=== PATIENT | female | born 1955 | race Caucasian/White ===

== ENCOUNTER → 2023-10-31 06:32 | Day surgery (SDC) | payer MEDICARE, OTHER, SELFPAY | LOC: GI 06:32 | PROVIDERS: ATTENDING PHYSICIAN Internal Medicine Gastroenterology | DX: Z12.11 Encounter for screening for malignant neoplasm of colon (principal); K63.5 Polyp of colon; K57.30 Diverticulosis of large intestine without perforation or abscess without bleeding; K64.8 Other hemorrhoids; Z86.010 Personal history of colon polyps | CPT/HCPCS: 45380; 88305 ==

== ENCOUNTER → 2023-12-29 07:09 | Outpatient (REF) | payer MEDICARE, OTHER, SELFPAY | LOC: RCS 07:09 | PROVIDERS: ATTENDING PHYSICIAN Family Medicine | DX: R06.09 Other forms of dyspnea (principal); R01.1 Cardiac murmur, unspecified; M79.89 Other specified soft tissue disorders | CPT/HCPCS: 93306 ==

== ENCOUNTER 2024-01-15 06:09 | Day surgery (SDC) | payer MEDICARE, OTHER, SELFPAY ==
[2024-01-15] VITALS (17 sets, daily range): BP systolic 78–164; BP diastolic 33–61; BMI 37.4
[2024-01-15] MEDS: LOW STRENGTH ASPIRIN 324 MG PO (07:30)
--- NOTE | 2024-01-15 08:42 | ITS.CL.CATH ---
[facility] - Catheterization
Cardiac Catheterization
Procedure Report:
LEFT HEART CATHETERIZATION
Date of Procedure: January 15, 2024
Referring: Dr. Cristobal Pacheco
PROCEDURES:
1. Coronary angiography
INDICATION: This is a 68-year-old female with a longstanding history of 'cardiac murmur'. She was seen for her regular physical exam in September and was told that her murmur may be a little bit louder. In November she began feeling poorly with a change
in exercise tolerance especially when walking up slight hills and development of chest pain. At this point an echocardiogram was ordered and the patient was referred to cardiology for further evaluation. She was noted to have severe aortic
stenosis and moderate aortic insufficiency. She is now referred for coronary angiography
ACCESS: Right radial artery, 6 Pashto sheath
HEMODYNAMICS : (mmHg)
AO (s/d) : 166/65
CORONARY FINDINGS
DOMINANCE: Left
LEFT MAIN: Normal
LEFT ANTERIOR DESCENDING: The LAD arises normally from the left main and runs in the anterior interventricular groove. The LAD tapers to a small caliber vessel as it approaches the left ventricular apex. No focal stenosis is noted.
CIRCUMFLEX: The circumflex is a large-caliber dominant vessel supplying a very small OM1 before continuing the AV groove. The circumflex and supplies a large posterolateral system that bifurcates proximally into 2 sizable daughter branches. The
PDA is widely patent.
RIGHT CORONARY ARTERY: Small nondominant
VENTRICULOGRAPHY: Not done
RADIATION SUMMARY: Fluoro Time (min): 2.6, Dose (mGy): 167, DAP (Gy.cm2) : 12.4
Closure Device: TR band
CONCLUSIONS
1. Nonobstructive coronary disease
2. Symptomatic aortic severe stenosis by echocardiogram
RECOMMENDATIONS
1. Will discuss at upcoming TAVR meeting to determine surgical versus transcatheter treatment options. Will begin by obtaining TAVR CT scan to assess annular dimensions which may impact treatment option
Copy to: Dr. Cristobal Pacheco
[2024-01-15] MEDS: NSS 1000 IV (11:37)
== END 2024-01-15 11:50 | disposition home or self-care (01) ==
LOC: CATH 06:09
PROVIDERS: ATTENDING PHYSICIAN Internal Medicine Interventional Cardiology; FAMILY PHYSICIAN Family Medicine; OTHER PHYSICIAN Internal Medicine Cardiovascular Disease
DX: I35.2 Nonrheumatic aortic (valve) stenosis with insufficiency (principal); I25.10 Atherosclerotic heart disease of native coronary artery without angina pectoris; I10 Essential (primary) hypertension; Z79.890 Hormone replacement therapy; Z79.899 Other long term (current) drug therapy
CPT/HCPCS: 93454; C1894; Q9967

== ENCOUNTER → 2024-01-29 09:16 | Outpatient (REF) | payer MEDICARE, OTHER, SELFPAY | LOC: RAD 09:16 | PROVIDERS: ATTENDING PHYSICIAN Nurse Practitioner Acute Care; FAMILY PHYSICIAN Family Medicine | DX: R35.0 Frequency of micturition (principal) | CPT/HCPCS: 74174; 75572; Q9967 ==

== ENCOUNTER 2024-03-28 05:01 | Inpatient (IN) | payer MEDICARE, OTHER, SELFPAY ==
--- NOTE | 2024-03-20 10:41 | CM ---
Met with Miss Catherine in [facility]. She states prior to admission she resides alone in a two story townhouse with one step to enter. She states she has one step to enter. She states she has a full flight of steps to get to bedroom/full bathroom. She
states prior to admission she was independent with ambulation and adls. She does not have any DME in the home. She states she has a prescription plan . She states she is planning on staying with her sister, Romy in [place], [place] for a week before
returning to her own home. Her sisiter resides in a one story home with one step to enter. The discharge plan is to go to her sister's home in [place] with a home visit by the Cardiothoracic Transitional Care Nurse when medically stable.
We reviewed pre-op and post-op routines. We reviewed the shower instructions. She has the soap, written instructions and the Cardiothoracic Surgery Educational Booklet. We also reviewed restrictions including sternal precautions and driving
restrictions. We discussed a home visit by the Transitional Care Nurse. She is agreeable to a home visit. The plan is for AVR on Wednesday, March 27, 2024.
[2024-03-20 11:32] VITALS: BMI 37.2
[2024-03-20 11:44] LABS: % Basophils 0.8 % (0-2); % Immature Granulocytes 0.4 % (0-0.5); % Lymphocytes 22.3 % (20.5-51.1); % Monocytes 6.3 % (1.7-9.3); % Neutrophils 67.2 % (42.2-75.2); Absolute Basophils 0.1 10^3/uL (0-0.2); Absolute Eosinophils 0.2 10^3/uL (0-0.7); Absolute Lymphocytes 1.6 10^3/uL (1.2-3.4); Absolute Monocytes 0.5 10^3/uL (0.1-0.6); Absolute Neutrophils 4.9 10^3/uL (1.4-6.5); Hematocrit 39.8 % (37.0-47.0); Hemoglobin 13.6 g/dL (12.0-16.0); Mean Corp Hgb Conc. 34.2 g/dL (33.0-37.0); Mean Corpuscular Hgb 28.7 pg (27.0-31.0); Mean Platelet Volume 10.6 fL (7.4-10.4); Nucleated Red Blood Cells % 0 %; Platelet Count 187 10^3/uL (130-400); Red Blood Cell Count 4.74 10^6/uL (4.20-5.40); Red Cell Dist. Width 13.2 % (11.5-14.5); White Blood Cell Count 7.3 10^3/uL (4.8-10.8)
[2024-03-20 11:53] LABS: INR 0.93; PT 12.4 Sec (11.4-14.6)
[2024-03-20 11:54] LABS: APTT 30.1 Sec (23.4-35.0)
[2024-03-20 12:00] LABS: Urine Albumin Negative (Neg - Trace); Urine Bilirubin Negative (Negative); Urine Character Clear (Clear); Urine Color Straw; Urine Glucose Negative (Negative); Urine Ketone Negative (Negative); Urine Leukocyte Negative (Negative); Urine Nitrite Negative (Negative); Urine Occult Blood Negative (Negative); Urine Specific Gravity 1.005 (<1.030); Urine Urobilinogen Negative (Neg - 1+)
[2024-03-20 12:09] LABS: ALT (SGPT) 23 U/L (0-35); AST (SGOT) 25 U/L (14-36); Albumin 4.1 g/dl (3.5-5.0); Alkaline Phosphatase 93 U/L (38-126); Blood Urea Nitrogen 16 mg/dl (7-17); Calcium 9.2 mg/dl (8.4-10.2); Carbon Dioxide 29 mmol/L (22-30); Chloride 102 mmol/L (98-107); Direct Bilirubin 0.1 mg/dl (0.0-0.4); Estimated Creatinine Clearance 77 ml/min; Glucose 86 mg/dl (70-99); Potassium 4.6 mmol/L (3.5-5.1); Sodium 140 mmol/L (135-145); Total Bilirubin 0.6 mg/dl (0.2-1.3); Total Protein 6.3 g/dl (6.3-8.2); eGFR > 60.00
[2024-03-20 12:17] LABS: Glycohemoglobin (HgbA1c) 5.2 % (4.0-5.6)
[2024-03-28] VITALS (16 sets, daily range): BP systolic 83–144; BP diastolic 56–96; BMI 35.8
[2024-03-28] MEDS: MAGNESIUM OXIDE 500 MG PO (05:48)
[2024-03-28] MEDS: LOPRESSOR 12.5 MG PO (05:48)
[2024-03-28] MEDS: PROTONIX 40 MG PO (05:48)
[2024-03-28] MEDS: BACTROBAN 2% OINTMENT 1 APPLIC NASAL ×2 (05:49→20:12)
--- NOTE | 2024-03-28 06:44 | PTCARENOTE ---
pt admitted to 3. pt confirmed 2 showers at home and NPO since midnight. pt clipped, prepped, washed with CHG. full admission completed. meds given, CTPA only wants 12.5 lopressor for hx of asthma. awaiting CVOR
[2024-03-28 07:57] LABS: ACT+ - POC 107 Seconds (82-134)
[2024-03-28 08:01] LABS: Urine Albumin Negative (Neg - Trace); Urine Bilirubin Negative (Negative); Urine Character Clear (Clear); Urine Color Yellow; Urine Glucose Negative (Negative); Urine Ketone Negative (Negative); Urine Leukocyte Negative (Negative); Urine Nitrite Negative (Negative); Urine Occult Blood Trace (Negative); Urine Urobilinogen Negative (Neg - 1+)
[2024-03-28 08:25] LABS: Urine Squamous Cell 0-2 /LPF (Few)
[2024-03-28 08:26] LABS: Urine Bacteria Few (Negative); Urine White Cell 0-2 /HPF (0-5)
--- NOTE | 2024-03-28 08:48 | CM ---
Reviewed chart. Ms. Catherine is the operating room today. Prior to admission she resides alone in a two story home with one step to enter. She has a full flight of stairs to get to bedroom/full bathroom. Prior to admission she was independent
with ambulation and adls. She does not have any DME in the home. She has a prescription plan . She is planning [place] [place] [facility] before returning to her own home. Her sister resides in a one story
home with one step to enter. Medial work-up in progress. The discharge plan is to go to her sister's home with a home visit by the Transitional Care Nurse when medically stable.
[2024-03-28 09:11] LABS: ACT+ - POC 787 Seconds (82-134)
[2024-03-28 09:45] LABS: B.E. - POC -2.8 mmol/L; Glucose - POC 100 mg/dl (70-99); HCO3 - POC 21 mmol/L (21-29); Hematocrit - POC 30 % PCV (37-47); Hemodilution- POC No; Hemoglobin Calculated - POC 10.2; Ionized Calcium - POC 1.03 mmol/L (1.12-1.27); O2 Saturation %Calculated-POC 99.9 % (92-96); PCO2 - POC 33 mmHg (35-45); PO2 - POC 250 mmHg (80-100); POC Comment PRE; Potassium - POC 3.4 mmol/L (3.6-5.0); Sodium - POC 143 mmol/L (135-145); pH - POC 7.42 (7.35-7.45)
[2024-03-28 09:59] LABS: ACT+ - POC 622 Seconds (82-134)
[2024-03-28 10:27] LABS: B.E. - POC 3.5 mmol/L; Glucose - POC 99 mg/dl (70-99); HCO3 - POC 27 mmol/L (21-29); Hematocrit - POC 29 % PCV (37-47); Hemodilution- POC Yes; Hemoglobin Calculated - POC 9.7; Ionized Calcium - POC 0.93 mmol/L (1.12-1.27); PCO2 - POC 35 mmHg (35-45); PO2 - POC 408 mmHg (80-100); POC Comment CPB; Potassium - POC 5.2 mmol/L (3.6-5.0); Sodium - POC 140 mmol/L (135-145)
[2024-03-28 10:38] LABS: ACT+ - POC 546 Seconds (82-134)
[2024-03-28 11:10] LABS: B.E. - POC 2.8 mmol/L; Glucose - POC 146 mg/dl (70-99); HCO3 - POC 27 mmol/L (21-29); Hematocrit - POC 28 % PCV (37-47); Hemodilution- POC Yes; Hemoglobin Calculated - POC 9.4; Ionized Calcium - POC 0.96 mmol/L (1.12-1.27); O2 Saturation %Calculated-POC 99.9 % (92-96); PCO2 - POC 40 mmHg (35-45); PO2 - POC 305 mmHg (80-100); POC Comment CPB; Potassium - POC 5.2 mmol/L (3.6-5.0); Sodium - POC 141 mmol/L (135-145); pH - POC 7.44 (7.35-7.45)
[2024-03-28 11:18] LABS: ACT+ - POC 549 Seconds (82-134)
[2024-03-28 11:36] LABS: B.E. - POC 1.7 mmol/L; Glucose - POC 164 mg/dl (70-99); HCO3 - POC 27 mmol/L (21-29); Hematocrit - POC 28 % PCV (37-47); Hemodilution- POC Yes; Hemoglobin Calculated - POC 9.4; Ionized Calcium - POC 0.97 mmol/L (1.12-1.27); O2 Saturation %Calculated-POC 99.9 % (92-96); PCO2 - POC 44 mmHg (35-45); PO2 - POC 260 mmHg (80-100); POC Comment REWARN; Potassium - POC 4.6 mmol/L (3.6-5.0); Sodium - POC 141 mmol/L (135-145); pH - POC 7.39 (7.35-7.45)
[2024-03-28 11:40] LABS: ACT+ - POC 101 Seconds (82-134)
[2024-03-28 11:41] LABS: Glucose - POC 148 mg/dl (70-99); HCO3 - POC 23 mmol/L (21-29); Hematocrit - POC 26 % PCV (37-47); Hemodilution- POC Yes; Hemoglobin Calculated - POC 8.8; Ionized Calcium - POC 0.99 mmol/L (1.12-1.27); PCO2 - POC 31 mmHg (35-45); PO2 - POC 514 mmHg (80-100); POC Comment POST; Potassium - POC 3.7 mmol/L (3.6-5.0); Sodium - POC 143 mmol/L (135-145); pH - POC 7.49 (7.35-7.45)
--- NOTE | 2024-03-28 12:16 | W.CVOR.SURPR ---
CVOR Surgeon Immed Pre Op
-
I have examined this patient prior to performance of the scheduled procedure.
The patient's condition is unchanged from the time of the dictated/written History and
Physical and the patient is able to undergo the scheduled procedure.
--- NOTE | 2024-03-28 12:17 | W.IMMPOSTOP ---
Addendum entered and electronically signed by Dm Bar MD 03/28/24 13:31:
[id number]
Original Note:
Surgical Immed Post Op Note
-
CARDIAC SURGERY OPERATIVE NOTE:
Preoperative Dx:
[id number] aortic stenosis (P/M: 76/38)
[id number] aortic insufficiency
Mild MR
HTN
Hypothyroidism
Asthma
Postoperative Dx:
Same
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
Low-threshold for AF
Procedures:
1) Median sternotomy
2) AVR (#21 Inspiris)
3) ELAA (35mm AtriClip)
Surgeon:
Dm Bar M.D.
Cash Person:
Jaquelin العراقي P.A.-C.; first coat operator throughout, closure
Anesthesia:
Brien Rosales M.D.
Perfusion:
Wilber NunezPArabella; XC: 92min, CPB: 116min
Findings:
IVC was quite small w/ only the tip of the dual-stage venous cannula (29/37) advancing into proximal subdiaphragmatic IVC
Attempted to placed 34 single-stage w/ identical result - replaced dual-stage venous cannula w/ shallow placement
Aorta was healthy appearing w/ STJ c/w preoperative CTA measurements (21.9 x 21.9)
AV was a true bicuspid valve w/ opening positioned at 1 o'clock/7 o'clock
Both the LM and RM coronaries were in close proximity to the annulus as expected (LM height - 9.7mm, RM height - 8.8mm); located at 12 o'clock/8 o'clock respectively
There was questionable healed endocarditis at the midpoint of the commissural zone of the leaflets
The right lateral leaflet was split from the midpoint lesion towards the annulus w/ prolapse of this leaflet the causative etiology behind the severe AI
#21 Inspiris valve secured w/ 14 interrupted, pledgetted valve sutures & CorKots
Pt w/ AF w/ RVR upon manipulation of RA for cannulation - I therefore opted to place an AtriClip (35mm) - appendage confirmed closed on postoperative CANDACE
Post-CANDACE: normal biventricular function w/ LVEF 65% w/ well-seated AVR w/o AI/PVL, mean gradient under GA 7mmHg
Implants:
Epicardial V-wires x 2
CT x 2 (mediastinal)
7 sternal wires
Sternal 'X' plate w/ 8 - 10mm screws
Sternal 'Square' plate w/ 4 - 8mm screws
Complications:
None
Condition:
78 sinus w isoelectric STs. 124/80. 100%
GTTS: insulin 1, levophed 1, precedex 0.5
Stable/guarded to CVICU
[2024-03-28 12:50] LABS: Glucose - Point of Care 152 mg/dl (70-99)
[2024-03-28 13:00] LABS: Hematocrit 29.5 % (37.0-47.0); Hemoglobin 10.7 g/dL (12.0-16.0); Platelet Count 145 10^3/uL (130-400)
--- NOTE | 2024-03-28 13:00 | PTCARENOTE ---
received pt from CVOR at 12:45 into room 2263. pt intubated via ETT and sedated. Cardene infusing @ 2.5mg. Precedex gtt infusing @ 0.5mcg. Insulin gtt infusing per glycemic protocol. SR w prolinged QT interval on monitor, HR 60s-70s. B/L radial and
DP pulses palpable. heart tones clear. epicardial V wires intact and off. RIJ cordis/slic intact w KVOs infusing. radial art line intact. SBP 110's. CVP ~14. B/L breath sounds present. #8 ETT intact @ 22cm to R lip. ventilator set to SIMV
10/550/5/60%, POX 99%. CT x2 intact to -20 cm wall suction, drainage WNL no air leak present. hypoactive bowel sounds present. harper catheter intact, draining CYU. all surgical sites stable. labs drawn and sent EKG completed. see worklist for full
assessment, VS, and interventions.
[2024-03-28 13:02] LABS: B.E. 1.2 mmol/L; Ionized Calcium 1.13 mMOL/L (1.15-1.33); O2 Saturation % 99.6 % (94-98); PCO2 36 mmHg (32-35); PO2 154 mmHg (83-108); Potassium 3.6 mMOL/L (3.5-5.1); Sodium 140 mMOL/L (136-145); pH 7.45 (7.35-7.45)
--- NOTE | 2024-03-28 13:05 | CON.INTV ---
Consultation
Consultation Request
Date/Time Consultation Requested: 03/28/2024 - 1237
Date/Time Consultation Performed: 03/28/2024 - 1301
Requesting Provider: Madison Tierney PA-C
Performing Provider: Jm Saavedra MD
Reason for Consultation: s/p SAVR
Medical History
-
Chief Complaint: Elective surgical aortic valve replacement
History of Present Illness:
68-year-old female non-smoker with a past medical history of moderate�severe aortic stenosis with moderate aortic regurgitation, hypothyroidism, hypertension and asthma who presents with surgical aortic valve replacement. Patient known to
cardiothoracic surgery service with last visit with Dr. Bar on 02/05/2024. Patient has symptomatic aortic stenosis with aortic regurgitation with peak/mean gradients of 76/38 mmHg, respectively. Her LVEF is preserved at 55-60%. Prior left heart
cath in January 2024 showed nonobstructive CAD. Her CT TAVR was performed on 01/29/2024 showing no pulmonary nodules. TAVR versus SAVR were discussed in great detail including the risks and benefits of both. She has agreed to surgical intervention
and today she underwent surgical aortic valve replacement with #21 Inspiris with a left atrial appendage exclusion with a 35mm atrial clip. There were no complications and she was transferred to the CVICU for further care. Senior Relationship Manager services
consulted for additional management/recommendations.
When I saw the patient she was resting in bed in no acute distress on SIMV at: 10/550/50%/5, with PIP: 25 cmH2O and VTe 503 mL and breathing at 10 breaths/min. Heart rate 70, saturating 98%, BP via right radial A-line: 96/61, BP via NIBP: 92/56.
Currently on insulin drip at 1unit/hr, Precedex at 0.5mcg/kg/hr. She has mediastinal chest tubes x 2.
PMHx: Aortic stenosis, hypertension, hypothyroidism, history of asthma
PSHx: Lateral meniscus tear with right knee arthroscopy with partial lateral meniscectomy and lateral femoral condyle debridement, D&C with hysteroscopy, breast biopsy (benign), ankle fracture with ORIF (left � 1984), scalp cyst excision x 2 (2019)
Past Medical History
Past Medical History: Other (Above as per HPI)
Past Surgical History: Other (Above as per HPI)
Social History
Tobacco: Non-smoker
Alcohol: Occasional
Drug: None
Personal: Single
Employment: Retired
Family History
Family History: Cancer (Paternal grandmother: Breast cancer; maternal grandfather: Colon cancer; maternal aunt + paternal aunt: Ovarian cancer) and Hypertension (Father)
Allergies / Home Medications
Allergies
Allergy/AdvReac Type Severity Reaction Status Date / Time
No Known Allergies Allergy Verified 03/18/24 11:00
Home Medications
�Medication �Instructions �Recorded �Confirmed �Last Taken �Type
atorvastatin 10 mg tablet 10 mg PO DAILY 01/15/24 03/28/24 03/27/24 06:00 History
hydrochlorothiazide 12.5 mg tablet 12.5 mg PO DAILY 01/15/24 03/28/24 03/27/24 06:00 History
levothyroxine 75 mcg capsule 75 mcg PO DAILY 01/15/24 03/28/24 03/27/24 06:00 History
Review of Systems
-
Unable to Obtain full review of systems at this time due to: Patient Intubation
Vitals / Labs / Diagnostic Testing
Vital Signs
Temp Pulse Resp BP Pulse Ox
99.3 F 79 11 117/56 99
03/28/24 18:00 03/28/24 17:45 03/28/24 17:45 03/28/24 16:00 03/28/24 17:45
Lab Data
03/28/24 17:05
03/28/24 12:52
Laboratory Results
03/28/24 03/28/24
12:52 15:42
PT 16.7 H
INR 1.37
APTT 32.8
pH 7.45 7.42
pCO2 36 H 38 H
pO2 154 H 174 H
HCO3 25.0 24.6
O2 Delivery Level
Microbiology
03/28/24 09:41 Chest - Left Gram Stain - Preliminary
03/28/24 09:50 Heart Fungal Culture - Preliminary
Culture in progress.
Positive cultures are reported as soon as detected.
Final report to follow in four to five weeks.
Diagnostic Testing:
Physical Exam
-
HEENT: Normocephalic and Anicteric
Cardiovascular: S1/S2 and Peripheral Edema (negative)
Respiratory: Wheeze (negative), Rales (negative), Rhonchi (negative), Non-Labored Respirations, Other (Mechanical breath sounds heard bilaterally) and Other (Chest tubes: Mediastinal chest tubes x 2)
GI: Soft, Distended (Abdominal obesity), Non Tender and Normal Bowel Sounds
Neurology: Tremors (negative) and Other (Sedated)
Skin: Warm and Dry
General: Respiratory Distress (negative), Comfortable, Chills (negative) and Sweats (negative)
Assessment
-
Assessment: 68-year-old female non-smoker with a past medical history of moderate�severe aortic stenosis with moderate aortic regurgitation, hypothyroidism, hypertension and asthma who presents with surgical aortic valve replacement. Patient known
to cardiothoracic surgery service with last visit with Dr. Bar on 02/05/2024. Patient has symptomatic aortic stenosis with aortic regurgitation with peak/mean gradients of 76/38 mmHg, respectively. Her LVEF is preserved at 55-60%. Prior left
heart cath in January 2024 showed nonobstructive CAD. Her CT TAVR was performed on 01/29/2024 showing no pulmonary nodules. TAVR versus SAVR were discussed in great detail including the risks and benefits of both. She has agreed to surgical
intervention and on 03/28/2024, she underwent surgical aortic valve replacement with #21 Inspiris with a left atrial appendage exclusion with a 35mm atrial clip. There were no complications and she was transferred to the CVICU for further care.
Senior Relationship Manager services consulted for additional management/recommendations.
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
Impression:
#Bicuspid AV valve with moderate�severe aortic stenosis with moderate�severe aortic insufficiency s/p surgical aortic valve replacement with left atrial appendage exclusion with 35mm AtriClip (POD #0)
#Anemia (mild)
#Hypertension
#Hypothyroidism
#Asthma
#Obesity (BMI: 35.8)
Plan:
Ventilator settings reviewed
FiO2 will be weaned to maintain SpO2 >90-94%
Minute ventilation will be adjusted
Arterial blood gases will be monitored
Spontaneous breathing trial will be attempted with hopeful extubation after anesthesia/sedation wear off
prn nebulized bronchodilators
Pressors/antihypertensive/inotropes/diuretics will be provided as needed
Maintain MAP>65
Replete electrolytes with K>4, Mg>2
Monitor chest tube output
Monitor hemoglobin
Monitor platelet count and coags
Transfuse blood products as needed to maintain Hb>7g/dL, plt>50k (given post-operative status)
CT surgery managing chest tubes
Monitor blood sugar to maintain euglycemia with goal BG 140-180
Insulin drip per protocol
Aspiration precautions
VAP prevention protocol
DVT prophylaxis
Early nutrition
Early mobilization
Critical care statement: A total of 41 minutes of critical care time was provided for this patient today. This includes management of ventilator, spontaneous breathing trial, arterial blood gases, pressors, of unstable vital signs, evaluation of the
patient at bedside, reviewing the patient's pertinent medical records including radiographs, microbiology, laboratory evaluations, and discussion with primary team and critical care nursing.
[2024-03-28 13:09] LABS: Mixed Venous O2 Saturation 67.5 %
[2024-03-28 13:10] LABS: Blood Urea Nitrogen 12 mg/dl (7-17); Estimated Creatinine Clearance 88 ml/min; Glucose 149 mg/dl (70-99); INR 1.37; Magnesium 3.2 mg/dl (1.6-2.3); PT 16.7 Sec (11.4-14.6)
[2024-03-28 13:11] LABS: APTT 32.8 Sec (23.4-35.0)
[2024-03-28] MEDS: KCL 50 IV (13:44)
[2024-03-28] MEDS: ANCEF 10 IV ×2 (13:48→13:49)
[2024-03-28] MEDS: NSS 500 IV (13:49)
[2024-03-28] MEDS: NEURONTIN PO ×2 (13:49→15:45)
[2024-03-28] MEDS: LIPITOR PO (13:49)
[2024-03-28] MEDS: TYLENOL PO (13:49)
[2024-03-28 14:05] LABS: Glucose - Point of Care 131 mg/dl (70-99)
[2024-03-28] MEDS: CALCIUM GLUCONATE 100 IV (14:14)
--- NOTE | 2024-03-28 14:56 | W.PN.CARDCBS ---
Addendum entered and electronically signed by Damion Dow MD 03/28/24 16:27:
I saw and examined the patient.
The Treasury Agent's note was reviewed and I agree with the note.
Comment:
GEN: No distress, awake, Ox3
HEENT: supple, anicteric, mmm
LUNGS: scatt rhonchi
CV: Reg, S1/S2, no murmur
ABD: soft, BS+, NT/ND
EXT: No edema
NEURO: Gross non-focal
SKIN: No rash
Plan:
Overall doing well s/p AVR. In sinus rhythm. Wean drips
EKG with prolonged QT interval. Repeat in AM.
Original Note:
Today's Communication / Plan
-
Continue postoperative care
Repeat EKG in a.m. to reassess QTc
Impression / Plan
-
Sev
mod AI
s/p bioprosthetic AVR #21 Inspiris valve with 35 mmAtriClip 03/28/24
HTN
asthma
hyperlipidemia
hypothyroidism
Chronic lower extremity edema
Previous cardiovascular testing:
Echocardiogram 12/29/2023: EF 55 to 60%, possible bicuspid aortic valve, severe aortic stenosis 76/38/0 0.8 cm, moderate AI
cardiac cath 01/15/2024: Nonobstructive CAD
Plan:
- s/p bio AVR, w/ CHARU clip 03/28/24
-Postop CANDACE: Normal biventricular function, EF 65%, well-seated AVR
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
-intraoperatively had afib w/ RVR w/ manipulation of RA for cannulation
-Postop EKG showing QT prolongation, QTc 567 ms, repeat EKG in am
-remains intubated, sedated, wean per protocol
-in NSR
-off Levo
-remains on Cardene, Precedex, Insulin gtts
-Resume outpatient statin when taking oral meds
Progress Note - Furnace Fitter
Subjective
Date of Service: March 28, 2024
Status post AVR, bio prosthetic, and CHARU with atrial clip 03/28/24. Postop CANDACE normal LV function with well-seated AVR
In normal sinus rhythm
off pressors
Objective
Labs:
03/28/24 12:52
Labs
Hgb 10.7 g/dL (12.0-16.0) L 03/28/24 12:52
Hct 29.5 % (37.0-47.0) L 03/28/24 12:52
Plt Count 145 10^3/uL (130-400) 03/28/24 12:52
PT 16.7 Sec (11.4-14.6) H 03/28/24 12:52
INR 1.37 03/28/24 12:52
APTT 32.8 Sec (23.4-35.0) 03/28/24 12:52
Sodium 140 mmol/L (135-145) 03/20/24 08:58
Potassium 4.6 mmol/L (3.5-5.1) 03/20/24 08:58
BUN 12 mg/dl (7-17) 03/28/24 12:52
Creatinine 0.6 mg/dL (0.6-1.0) 03/28/24 12:52
Glucose 149 mg/dl (70-99) H 03/28/24 12:52
Vital Signs and I&O:
Vital Signs
Temp Pulse Resp BP Pulse Ox
96.8 F L 75 22 83/61 96
03/28/24 14:00 03/28/24 14:00 03/28/24 14:00 03/28/24 13:30 03/28/24 13:45
Vital Signs
Temp Pulse Resp BP Pulse Ox
96.8 F L 75 22 83/61 96
03/28/24 14:00 03/28/24 14:00 03/28/24 14:00 03/28/24 13:30 03/28/24 13:45
Intake & Output
03/26/24 03/27/24 03/28/24 03/29/24
06:59 06:59 06:59 06:59
Intake Total 126.0 / 126.0
Output Total 200 / 200
Balance -74.0 / -74.0
Physical Exam
Physical Exam
GEN: intubated, sedated
HEENT: supple, anicteric, mmm
LUNGS: CTA, no wheezes/rales
CV: Reg, S1/S2, + rub, sternal incision w/ dressing, no obvious drainage
EXT: No edema, 2+ DP pulses
[2024-03-28 14:57] LABS: Glucose - Point of Care 120 mg/dl (70-99)
[2024-03-28 15:43] LABS: Glucose - Point of Care 123 mg/dl (70-99)
[2024-03-28] MEDS: PACERONE PO (15:45)
[2024-03-28 15:49] LABS: B.E. 0.3 mmol/L; HCO3 24.6 mmol/L (21-28); Ionized Calcium 1.33 mMOL/L (1.15-1.33); PCO2 38 mmHg (32-35); PO2 174 mmHg (83-108); Potassium 4.5 mMOL/L (3.5-5.1); pH 7.42 (7.35-7.45)
--- NOTE | 2024-03-28 15:57 | RESPNOTE ---
Respiratory: patient was extubated without incident, no stridor no wheeze.
--- NOTE | 2024-03-28 16:00 | PTCARENOTE ---
cpap abg sent and reviewed. pt extubated by COMPOSITION PROFESSOR @ 15:57 to 6LNC. POX 100%. no wheeze or stridor present. VSS. SR. CT and UO WNL. on/off low dose Levo. all surgical sites stable. insulin gtt maintained.
[2024-03-28] MEDS: DILAUDID 0.5 MG IV (16:53)
[2024-03-28 17:03] LABS: Glucose - Point of Care 139 mg/dl (70-99)
[2024-03-28 17:27] LABS: Hematocrit 33.3 % (37.0-47.0); Hemoglobin 11.8 g/dL (12.0-16.0); Platelet Count 182 10^3/uL (130-400)
[2024-03-28 18:31] LABS: Glucose - Point of Care 144 mg/dl (70-99)
[2024-03-28] MEDS: LOW STRENGTH ASPIRIN 81 MG PO (19:06)
--- NOTE | 2024-03-28 19:41 | PTCARENOTE ---
assumed care of patient @ 1900. received pt laying in bed, AOx3. Mild c/o sternal pain when taking deep breaths . NSR on tele HR 70s. V wire to box turned off. +PP, trace edema b/l lower. Lungs clear, diminished on 2L satting high 90s. 2 mediastinal
chest tubes to wall suction, no air leak, tidaling or crepitus noted. Belly soft, round, hypoactive. temp sensing harper draining clear yellow urine. MSI inscision CDI, CT dressing CDI. R IJ cordis with SLIC, R radial a line, R AC piv all patent.
recieved on 2 of levo , insulin per protocol .
[2024-03-28] MEDS: ROXICODONE 5 MG PO (20:11)
[2024-03-28] MEDS: ANCEF 5 IV (20:11)
[2024-03-28 21:04] LABS: Glucose - Point of Care 134 mg/dl (70-99)
[2024-03-28 22:06] LABS: Glucose - Point of Care 121 mg/dl (70-99)
[2024-03-28] MEDS: PACERONE 200 MG PO (22:10)
[2024-03-28] MEDS: SENOKOT-S 1 TABLET PO (22:11)
[2024-03-28] MEDS: NEURONTIN 100 MG PO (22:11)
[2024-03-28] MEDS: TYLENOL 1000 MG PO (22:11)
[2024-03-28 23:57] LABS: Glucose - Point of Care 104 mg/dl (70-99)
[2024-03-29] VITALS (17 sets, daily range): BP systolic 96–137; BP diastolic 58–84; PULSE 65; O2SAT 95; BMI 36.4
--- NOTE | 2024-03-29 | PTCARENOTE ---
levo off, BP good 110s/60s. pt resting comfortably with call bertrand within reach .
[2024-03-29 02:07] LABS: Glucose - Point of Care 87 mg/dl (70-99)
[2024-03-29] MEDS: ROXICODONE 5 MG PO ×2 (02:11→08:17)
[2024-03-29 02:13] LABS: Hematocrit 30.4 % (37.0-47.0); Hemoglobin 10.8 g/dL (12.0-16.0); Ionized Calcium 1.15 mMOL/L (1.15-1.33); Mean Corp Hgb Conc. 35.5 g/dL (33.0-37.0); Mean Corpuscular Hgb 29.2 pg (27.0-31.0); Mean Corpuscular Volume 82.2 fL (81.0-99.0); Mean Platelet Volume 10.3 fL (7.4-10.4); Platelet Count 151 10^3/uL (130-400); Red Cell Dist. Width 13.5 % (11.5-14.5); White Blood Cell Count 12.4 10^3/uL (4.8-10.8)
[2024-03-29 02:45] LABS: Blood Urea Nitrogen 17 mg/dl (7-17); Calcium 8.5 mg/dl (8.4-10.2); Carbon Dioxide 24 mmol/L (22-30); Chloride 108 mmol/L (98-107); Estimated Creatinine Clearance 88 ml/min; Glucose 128 mg/dl (70-99); Magnesium 2.7 mg/dl (1.6-2.3); Potassium 4.2 mmol/L (3.5-5.1); Sodium 142 mmol/L (135-145); eGFR > 60.00
--- NOTE | 2024-03-29 03:01 | W.PN.CT ---
Addendum entered and electronically signed by Dm Bar MD 03/29/24 08:50:
I saw and examined the patient.
The PA's note was reviewed and I agree with the note.
Comment:
POD#1 s/p AVR/ELAA
No major overnight events. De-lined. Harper D/C'd
- Maintain CTs today
- Maintain Cordis
- OOB/IS/ambulate
- F/U cultures - few WBCs, no organisms - will consult ID for evaluation of need for prophylactic ABX to limit risk of PVE
Original Note:
Today's Communication / Plan
-
Plan:
-No major issues overnight. Hemodynamically and neurologically intact
-Successfully extubated on 03/28/24 @ 1557
-Weaned of Levophed gtt overnight. Remains on insulin gtt per protocol
-MVO2 67.5%, U/O since OR 700 mL
-No [place]
-D/C'd a-line and SLIC @ 0430
-D/C'd harper @ 0600
-Will transfer to [facility] phase today once of insulin gtt
-Monitor chest tube drainage: 2med 75/195
-Cont. current meds (ASA, Amiodarone, Lipitor, Synthroid)
-BP soft postop, will hold AM Lopressor
-Maintain cordis
-Maintain temporary PW (will cut prior to d/c home)
-Wean off of O2 as tolerated
-Encourage use of IS
-OOB into chair/Ambulate
Assessment / Plan
-
Assessment:
-S/P Median sternotomy/AVR (#21 Inspiris)/ELAA (35mm AtriClip) by Dr. Bar, 03/28/24, pod#1
-Severe /AI
-Bicuspid AV
-Mild mitral regurgitation
-LVEF 60%, per intraop CANDACE
-Chronic b/l LE edema
-Hypertension
-Hyperlipidemia
-Class 2 obesity (BMI 35.8)
-Hypothyroidism
-Asthma
-S/p knee arthroscopy x 2
-S/p Breast bx
-S/P ORIF of L ankle, 1984
-Acute postop blood loss/Anemia (stable without blood transfusion)
-Acute postop atelectasis
-Acute postop hypovolemia with subsequent hypervolemia
-Intraop a-fib with RVR
Discussed patient care with: Cardiology, Nursing, Respiratory Therapy, Pharmacy and Care Team
Subjective
Procedure
S/P Median sternotomy/AVR (#21 Inspiris)/ELAA (35mm AtriClip) by Dr. Bar, 03/28/24
-
Date of Service: March 29, 2024
Pt c/o mild incisional pain, otherwise feels well
Objective Data
-
Lab Results
03/29/24 02:00
03/29/24 02:00
PT 16.7 Sec (11.4-14.6) H 03/28/24 12:52
INR 1.37 03/28/24 12:52
APTT 32.8 Sec (23.4-35.0) 03/28/24 12:52
Vital Signs
Vital Signs
Temp Pulse Resp BP Pulse Ox
98.6 F 72 14 106/69 97
03/29/24 02:00 03/29/24 00:00 03/29/24 00:00 03/29/24 00:00 03/29/24 02:00
CT Intake/Output/Weight
03/28/24 03/28/24 03/29/24
06:59 18:59 06:59
Intake Total 343.2 / 527.7 184.5 / 527.7
Output Total 520 / 815 295 / 815
Balance -176.8 / -287.3 -110.5 / -287.3
SaO2: 97 (2L)
Physical Exam
-
General: Awake, Oriented and AOx3
Cardiovascular: Regular rate & rhythm, No Murmurs, No Rub and No Gallop
Respiratory: Decreased Breath Sounds (at bases, otherwise clear)
Sternum: Stable
Incision: Clean, Dry, Intact and Dressing Intact
Extremities: Edema +1
Data Reviewed
-
Lab Results: Results Reviewed
Medications: Active Meds Reviewed
Chest X-Ray: Report Reviewed and Image Reviewed
ECG: Report Reviewed and Image Reviewed
[2024-03-29] MEDS: ANCEF 5 IV ×2 (03:55→12:01)
[2024-03-29 04:00] LABS: Glucose - Point of Care 125 mg/dl (70-99)
--- NOTE | 2024-03-29 04:00 | PTCARENOTE ---
calcium repleted, EKG done, A line and SLIC removed per order. no change in assessment.
[2024-03-29] MEDS: CALCIUM GLUCONATE 100 IV (04:24)
[2024-03-29 06:08] LABS: Glucose - Point of Care 118 mg/dl (70-99)
--- NOTE | 2024-03-29 06:32 | PTCARENOTE ---
full CHG bath completed, pt stood to scale and then to chair with steady gait. harper removed per order. now resting comfortably in chair with call bertrand within reach ,.
[2024-03-29] MEDS: SYNTHROID 75 MCG PO (06:35)
[2024-03-29] MEDS: TYLENOL 1000 MG PO ×3 (06:35→22:50)
[2024-03-29 07:58] LABS: Glucose - Point of Care 104 mg/dl (70-99)
--- NOTE | 2024-03-29 08:00 | PTCARENOTE ---
Assumed care of patient from mold shifter RN. AAO x3 flat affect but appropriate. SR on monitor. Epicardial wire connected to box, off. Insulin infusing per glycemic protocol. Chest tubes x 2 to - 20 cm suction. No air leaks or crepitus noted.
2 L NC 100%. Occasional dry cough noted. Using IS to 500. Abdomen soft, obese, positive bowel sounds. Pt able to void small amount post harper removal this am. DP pulses palpable. Trace anasarca noted. Plan for day discussed.
--- NOTE | 2024-03-29 08:05 | W.PN.ANS.POP ---
Anesthesia Post Operative
- Anesthesia Post Op Note
Vital Signs Stable-See Nursing Note: Yes
Airway Patent: Yes
Adequate Pain Control: Yes
Change in Mental Status: No
Current Postoperative Nausea & Vomiting: No
Anesthesia Complications: No
General Anesthetic Recall: No
Unplanned Admission: No
Post Op Hydration Adequate: Yes
[2024-03-29] MEDS: NEURONTIN 100 MG PO ×3 (08:17→22:50)
[2024-03-29] MEDS: SENOKOT-S 1 TABLET PO ×2 (08:17→20:07)
[2024-03-29] MEDS: LIPITOR 10 MG PO (08:17)
[2024-03-29] MEDS: PROTONIX 40 MG PO (08:17)
[2024-03-29] MEDS: LOW STRENGTH ASPIRIN 81 MG PO (08:17)
[2024-03-29] MEDS: LOPRESSOR 12.5 MG PO (08:17)
[2024-03-29] MEDS: PACERONE 200 MG PO ×3 (08:17→22:50)
[2024-03-29] MEDS: LIDOCAINE 4% PATCH 1 PATCH TOPICAL (08:18)
[2024-03-29] MEDS: BACTROBAN 2% OINTMENT 1 APPLIC NASAL ×2 (08:18→20:07)
--- NOTE | 2024-03-29 08:19 | W.PN.INTV ---
Today's Communication / Plan
Recommendations
Up OOB as tolerated
Pain control
Cardiac rehab consult
Encourage incentive spirometer use
Goal SpO2 >90-94%
Insulin drip is now off
Goal BG 140�180
Patient is now downgraded to CVICU�telemetry status. Reel Repairer/Pulmonary service will now sign off. Please reconsult if there are any additional questions/concerns, or if patient's respiratory status deteriorates.
Assessment
-
Assessment: 68-year-old female non-smoker with a past medical history of moderate�severe aortic stenosis with moderate aortic regurgitation, hypothyroidism, hypertension and asthma who presents with surgical aortic valve replacement. Patient known
to cardiothoracic surgery service with last visit with Dr. Bar on 02/05/2024. Patient has symptomatic aortic stenosis with aortic regurgitation with peak/mean gradients of 76/38 mmHg, respectively. Her LVEF is preserved at 55-60%. Prior left
heart cath in January 2024 showed nonobstructive CAD. Her CT TAVR was performed on 01/29/2024 showing no pulmonary nodules. TAVR versus SAVR were discussed in great detail including the risks and benefits of both. She has agreed to surgical
intervention and on 03/28/2024, she underwent surgical aortic valve replacement with #21 Inspiris with a left atrial appendage exclusion with a 35mm atrial clip. There were no complications and she was transferred to the CVICU for further care.
Reel Repairer services consulted for additional management/recommendations.
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
Impression:
#Bicuspid AV valve with moderate�severe aortic stenosis with moderate�severe aortic insufficiency s/p surgical aortic valve replacement with left atrial appendage exclusion with 35mm AtriClip (POD #1)
#Anemia (mild)
#Hypertension
#Hypothyroidism
#Asthma
#Obesity (BMI: 35.8)
Plan:
Patient was successfully extubated on 03/28/2024 to nasal cannula and is currently on room air breathing comfortably
Maintain SpO2 >90-94%
prn nebulized bronchodilators
Encourage incentive spirometer use
Maintain MAP>65
Replete electrolytes with K>4, Mg>2
Monitor chest tube output (mediastinal chest tubes x2)
Monitor hemoglobin
Monitor platelet count and coags
Transfuse blood products as needed to maintain Hb>7g/dL, plt>50k (given post-operative status)
CT surgery managing chest tubes
Monitor blood sugar to maintain euglycemia with goal BG 140-180
Insulin drip now off
Aspiration precautions
DVT prophylaxis
Early nutrition
Early mobilization
Patient is now downgraded to CVICU�telemetry status. Reel Repairer/Pulmonary service will now sign off. Thank you for allowing us to be involved in the care of this patient. Please reconsult if there are any additional questions/concerns, or if
patient's respiratory status deteriorates.
Total time spent today was 56 minutes for this encounter. Time includes reviewing laboratory test/imaging results, reviewing pertinent medical records, obtaining and reviewing medical history, performing an appropriate exam, ordering medications,
tests and procedures. Time also includes documentation of this encounter, coordinating patient care and communicating with other healthcare professionals. Total time does not include separately billed tests performed on this date of service.
Subjective Dataa
Subjective Data
Date of Service:
Date of Service: March 29, 2024
Chief Complaint: Reel Repairer Follow Up
Subjective:
Patient seen and evaluated today at bedside. She throughout her breakfast this morning but currently is not nauseous. She is currently on room air breathing comfortably saturating 98%. Heart rate 67. Mediastinal chest tubes x [address]
Patient's sister, Romy, at bedside and all questions were answered. Patient denies MCKEON, SOB, abdominal pain, fevers or chills.
Review of Systems
General: Other (Negative unless mentioned above)
Objective Data
Data Reviewed
Vital Signs / I&O / Oxygen:
Vital Signs
Temp Pulse Resp BP Pulse Ox
97.5 F 68 20 137/65 98
03/29/24 08:00 03/29/24 08:17 03/29/24 08:00 03/29/24 08:17 03/29/24 09:33
Intake and Output
03/28/24 03/29/24 03/30/24
06:59 06:59 06:59
Intake Total 615.6 / 615.6 252.3 / 252.3
Output Total 985 / 985 65 / 65
Balance -369.4 / -369.4 187.3 / 187.3
SaO2 [SIMV] 96
SaO2 98
Nasal Cannula flow liters per 2
minute
Physical Exam
General: Respiratory Distress (negative), Comfortable, Chills (negative) and Sweats (negative)
HEENT: Normocephalic and Anicteric
Cardiovascular: S1-S2 and Peripheral Edema (negative)
Respiratory: Wheeze (negative), Crackles (negative), Rhonchi (negative), Non-Labored Respirations and Chest Tube (Mediastinal x 2)
GI: Soft, Non Distended, Non Tender and Normal Bowel Sounds
Neurology: AO x 3 and Tremors (negative)
Skin: Warm, Dry, Cyanosis (negative) and Jaundice (negative)
Labs/Micro/Reports
Lab Data
03/29/24 02:00
03/29/24 02:00
Laboratory Results
03/28/24 03/28/24
12:52 15:42
PT 16.7 H
INR 1.37
APTT 32.8
pH 7.45 7.42
pCO2 36 H 38 H
pO2 154 H 174 H
HCO3 25.0 24.6
O2 Delivery Level
Microbiology
03/28/24 09:41 Heart Anaerobic Culture - Preliminary
Culture pending. Anaerobic cultures are examined after 3
days incubation. Additional information to follow.
03/28/24 09:41 Chest - Left Wound Culture - Preliminary
No growth
03/28/24 09:41 Chest - Left Gram Stain - Preliminary
03/28/24 09:50 Heart Fungal Culture - Preliminary
Culture in progress.
Positive cultures are reported as soon as detected.
Final report to follow in four to five weeks.
[2024-03-29 10:18] LABS: Glucose - Point of Care 137 mg/dl (70-99)
[2024-03-29] MEDS: ZOFRAN 4 MG IV (10:25)
--- NOTE | 2024-03-29 10:31 | W.PN.CARDCBS ---
Today's Communication / Plan
-
follow N/V
continue post op care
in SR
follow QTc
Impression / Plan
-
Sev
mod AI
s/p bioprosthetic AVR #21 Inspiris valve with 35 mmAtriClip 03/28/24
HTN
asthma
hyperlipidemia
hypothyroidism
Chronic lower extremity edema
Previous cardiovascular testing:
Echocardiogram 12/29/2023: EF 55 to 60%, possible bicuspid aortic valve, severe aortic stenosis 76/38/0 0.8 cm, moderate AI
cardiac cath 01/15/2024: Nonobstructive CAD
Plan:
-s/p bio AVR, w/ CHARU clip 03/28/24
-Postop CANDACE: Normal biventricular function, EF 65%, well-seated AVR
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
-intraoperatively had afib w/ RVR w/ manipulation of RA for cannulation. no recurrence on review of tele overnight
-QTc improved by EKG 03/09 compared to EKG 03/28. continue amio/lopressor
-she had N/V this AM after eating breakfast. for zofran. follow QTc
-off pressors
-OP statin resumed
-continue post op care, OOB/IS
-d/w nursing
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
Subjective
Date of Service: March 29, 2024
feeling well until N/V. reports some mild pain
Objective
Labs:
03/29/24 02:00
03/29/24 02:00
Labs
Hgb 10.8 g/dL (12.0-16.0) L 03/29/24 02:00
Hct 30.4 % (37.0-47.0) L 03/29/24 02:00
Plt Count 151 10^3/uL (130-400) 03/29/24 02:00
PT 16.7 Sec (11.4-14.6) H 03/28/24 12:52
INR 1.37 03/28/24 12:52
APTT 32.8 Sec (23.4-35.0) 03/28/24 12:52
Sodium 142 mmol/L (135-145) 03/29/24 02:00
Potassium 4.2 mmol/L (3.5-5.1) 03/29/24 02:00
BUN 17 mg/dl (7-17) 03/29/24 02:00
Creatinine 0.6 mg/dL (0.6-1.0) 03/29/24 02:00
Glucose 128 mg/dl (70-99) H 03/29/24 02:00
Vital Signs and I&O:
Vital Signs
Temp Pulse Resp BP Pulse Ox
97.5 F 68 20 137/65 98
03/29/24 08:00 03/29/24 08:17 03/29/24 08:00 03/29/24 08:17 03/29/24 09:33
Vital Signs
Temp Pulse Resp BP Pulse Ox
97.5 F 68 20 137/65 98
03/29/24 08:00 03/29/24 08:17 03/29/24 08:00 03/29/24 08:17 03/29/24 09:33
Intake & Output
03/27/24 03/28/24 03/29/24 03/30/24
07:59 07:59 07:59 07:59
Intake Total 615.6 / 867.9 252.3 / 252.3
Output Total 985 / 1050 65 / 65
Balance -369.4 / -182.1 187.3 / 187.3
Physical Exam
Physical Exam
GEN: No distress, awake, alert, oriented x3. sitting in chair. obese
HEENT: supple, anicteric, mmm, eomi
LUNGS: CTA B/L, no wheezes/rales
CV: Reg, S1/S2, no murmur
ABD: soft, BS+, NT/ND
EXT: No cyanosis, clubbing. Trace edema of B/L LE
NEURO: Gross non-focal
SKIN: Warm, pink, dry. No rash. Sternotomy dressing c/d/i. CT in place. temp wire in place
--- NOTE | 2024-03-29 10:47 | PTCARENOTE ---
Assisted oob to bsc able to void 25 ml. However upon sitting back down pt became abruptly nauseated and vomited an unmeasurable amount of liquid in the trash cane. gown and linens changed, face washed and zofran administered.
--- NOTE | 2024-03-29 12:00 | PTCARENOTE ---
Sitting up in chair. Denies complaint at present. Only able to void 50 ml since catheter removed this am. Bladder scanned for [address] PA notified Will reassess. VSS. Assessment unchanged from prior.
[2024-03-29] MEDS: NSS IV (13:22)
--- NOTE | 2024-03-29 15:58 | CON.ID ---
Consultation
-
Date/Time Consultation Requested: 03/29/2024 0845
Date/Time Consultation Performed: 03/29/2024 1510
Requesting Provider: Dr. Bar
Performing Provider: Dr. Jacques
Reason for Consultation: Possible endocarditis
Chief Complaint / Past History
History of Present Illness
Carly Catherine is a 68-year-old female being evaluated at the request of Dr. Bar in regards to possible endocarditis. History is obtained from chart review, along with patient interview.
The patient reports that she was in her usual state of health until February, when she recalls she developed some shortness of breath while walking on one of [place] [facility] [place] She notes that upon return she called her PCP and she was sent to
cardiology for further workup. Evidently an echocardiogram was performed which was found to be abnormal. A cardiac CT also was performed which showed calcification of the leaflets thickening. Ultimately she underwent valve replacement yesterday,
with intraoperative findings of abnormality of the leaflets, and possible infection. Infectious Diseases is asked to comment on further antimicrobial therapy.
The patient reports that other than some generalized feeling tired she had no other symptoms. She specifically states she has not had any noted fevers or any chills. She has not had any weight loss. She has not had any night sweats.
There is no history of tuberculosis in her or her family. She has no pets. She has no recent travel history except for [place] approximately [address] in [facility] approximately 5 years ago. She reports that [place] but was not
around farm animals.
Past History
Additional Past Medical History:
Valvulopathy
HTN
Dyslipidemia
Asthma
Additional Past Surgical History:
Arthroscopic surgery
D&C
Breast biopsy
Left ankle ORIF
Allergy History:
No Known Allergies Allergy (Verified 03/18/24 11:00)
Medications Reviewed: Yes
Current Antibiotics:
None
Social History
Tobacco: Non-Smoker
Alcohol: None
Drug: None
Personal: Single
Living: With Family
Employment: Retired
Family History
Family History: Not Pertinent
Review of Systems
Vital Signs
Temp Pulse Resp BP Pulse Ox
97.8 F 67 18 120/84 98
03/29/24 11:00 03/29/24 13:15 03/29/24 11:00 03/29/24 11:46 03/29/24 13:27
Physical Exam
Physical Exam
Constitutional: No Acute Distress, Comfortable and Non-toxic
Eyes: Pupils Equal, Pupils Round, No Conjunctival Hemorrhage and Sclera Anicteric
Oral: No Thrush and No Ulcers
Cardiovascular: Regular Rate, S1/S2 and Other (Pericardial drain in place.); Negative S3/S4
Pulmonary: Clear and Non Labored; Negative Wheezes, Rales or Rhonchi
Gastrointestinal: Soft, Non Tender, Non Distended, Normal Bowel Sounds, No Rebound and No Guarding
Extremities: Negative Edema, Cyanosis, Erythema, Splinter Hemorrhage or [place]ay Lesions
Musculoskeletal: Negative Joint Swelling or Joint Effusion
Neurological: Awake and Alert
Psychological: Calm
Lab / Diagnostic Study Results
03/29/24 02:00
03/29/24 02:00
Abs Immat Gran (auto) 0.0 10^3/uL (0-0.05) 03/20/24 08:58
Absolute Neuts (auto) 4.9 10^3/uL (1.4-6.5) 03/20/24 08:58
Absolute Lymphs (auto) 1.6 10^3/uL (1.2-3.4) 03/20/24 08:58
Absolute Monos (auto) 0.5 10^3/uL (0.1-0.6) 03/20/24 08:58
Absolute Basos (auto) 0.1 10^3/uL (0-0.2) 03/20/24 08:58
Immature Gran % 0.4 % (0-0.5) 03/20/24 08:58
Neutrophils % 67.2 % (42.2-75.2) 03/20/24 08:58
Lymphocytes % 22.3 % (20.5-51.1) 03/20/24 08:58
Monocytes % 6.3 % (1.7-9.3) 03/20/24 08:58
Eosinophils % 3.0 % (0-6) 03/20/24 08:58
Basophils % 0.8 % (0-2) 03/20/24 08:58
PT 16.7 Sec (11.4-14.6) H 03/28/24 12:52
INR 1.37 03/28/24 12:52
Ur Squamous Epith Cells 0-2 /LPF (Few) 03/28/24 07:30
Microbiology Results
Micro:
03/28/24 09:41 Anaerobic Culture - Preliminary
Heart Culture pending. Anaerobic cultures are examined after 3
days incubation. Additional information to follow.
03/28/24 09:41 Wound Culture - Preliminary
Chest - Left No growth
Gram Stain - Preliminary
03/28/24 09:50 Fungal Culture - Preliminary
Heart Culture in progress.
Positive cultures are reported as soon as detected.
Final report to follow in four to five weeks.
03/20/24 08:58 MRSA Screen - Final
Nose No Methicillin Resistant Staphylococcus aureus isolated.
Imaging:
01/29/2024 CT TAVR: Bicuspid aortic valve noted with mild to moderate calcifications along with leaflet thickening. No significant calcifications extending into the left ventricular outflow tract. Please see full dictation for additional detail.
Assessment / Plan
Aortic insufficiency
- s/p AVR with intraoperative findings of possible healed endocarditis
HTN
Dyslipidemia
Asthma
Recommendations:
Valve specimen has been sent for culture and pathology.
Although patient has no history of symptoms consistent with endocarditis, blood cultures are pending I will place her on ceftriaxone.
Monitor white count and temperature curve.
Further recommendations as additional data is returned.
Care Review
Plan reviewed with: Nurse and Physician
Total Time Spent with Patient (in minutes): CT Surgery
[2024-03-29] MEDS: ROCEPHIN 2000 MG IV (16:31)
[2024-03-29] MEDS: STERILE WATER FOR INJECTION 20 ML IV (16:32)
[2024-03-29] MEDS: LACTATED RINGERS 500 IV (18:24)
--- NOTE | 2024-03-29 18:33 | PTCARENOTE ---
500 ml IV fluid bolus administered per PA order.
--- NOTE | 2024-03-29 20:00 | PTCARENOTE ---
Bedside walking rounds report received. patient seen on rounds resting in bed. Neuro intact. Room air. NSR. Mediastinal chest tubes with minimal output. See flowrecord for remaining assessments.
--- NOTE | 2024-03-30 04:17 | W.PN.CT ---
Addendum entered and electronically signed by Dm Bar MD 03/30/24 09:13:
I saw and examined the patient.
The PA's note was reviewed and I agree with the note.
Comment:
POD#2 s/p AVR/ELAA
- D/C CTs
- Appreciate ID recommendations - f/u cultures
- Maintain cordis today
- OOB/IS/ambulate
Original Note:
Today's Communication / Plan
-
Plan:
-No major issues overnight. Hemodynamically and neurologically intact
-No drips
-Held Lopressor last night and switched to Toprol Xl d/t low bp and HR
-Consider d/c of chest tubes: 2med 70/165
-CxR from this AM looks clear on my review, f/u official report
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 Afebrile, TM 98.1, wbc 16.2, f/u cultures
-Cont. current meds (ASA, Amiodarone, Lipitor, Synthroid)
-Maintain cordis another day
-Maintain temporary PW (will cut prior to d/c home)
-Encourage use of IS
-OOB into chair/Ambulate
Assessment / Plan
-
Assessment:
-S/P Median sternotomy/AVR (#21 Inspiris)/ELAA (35mm AtriClip) by Dr. Bar, 03/28/24, pod#2
-Severe /AI
-Bicuspid AV
-Mild mitral regurgitation
-LVEF 60%, per intraop CANDACE
-Chronic b/l LE edema
-Hypertension
-Hyperlipidemia
-Class 2 obesity (BMI 35.8)
-Hypothyroidism
-Asthma
-S/p knee arthroscopy x 2
-S/p Breast bx
-S/P ORIF of L ankle, 1985
-Acute postop blood loss/Anemia (stable without blood transfusion)
-Acute postop atelectasis
-Acute postop hypovolemia with subsequent hypervolemia
-Intraop a-fib with RVR
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
Discussed patient care with: Cardiology, Nursing, Respiratory Therapy, Pharmacy and Care Team
Subjective
Procedure
S/P Median sternotomy/AVR (#21 Inspiris)/ELAA (35mm AtriClip) by Dr. Bar, 03/28/24
-
Date of Service: March 30, 2024
Pt c/o mild incisional pain, otherwise feels well
Objective Data
-
PT 16.7 Sec (11.4-14.6) H 03/28/24 12:52
INR 1.37 03/28/24 12:52
APTT 32.8 Sec (23.4-35.0) 03/28/24 12:52
Vital Signs
Vital Signs
Temp Pulse Resp BP Pulse Ox
98.1 F 61 18 117/63 94
03/29/24 19:57 03/30/24 01:15 03/29/24 19:57 03/29/24 19:57 03/29/24 20:00
CT Intake/Output/Weight
03/29/24 03/29/24 03/30/24
06:59 18:59 06:59
Intake Total 272.4 / 615.6 1164.9 / 1244.9 80 / 1244.9
Output Total 465 / 985 245 / 295 50 / 295
Balance -192.6 / -369.4 919.9 / 949.9 30 / 949.9
SaO2: 94 (RA)
Physical Exam
-
General: Awake, Oriented and AOx3
Cardiovascular: Regular rate & rhythm, No Murmurs, No Rub and No Gallop
Respiratory: Decreased Breath Sounds (at bases, otherwise clear)
Sternum: Stable
Incision: Clean, Dry, Intact and Dressing Intact
Extremities: Edema +1
Data Reviewed
-
Lab Results: Results Reviewed
Medications: Active Meds Reviewed
Chest X-Ray: Report Reviewed and Image Reviewed
ECG: Report Reviewed and Image Reviewed
[2024-03-30 04:52] VITALS: BP 119/71
[2024-03-30 04:53] VITALS: BP 119/71
--- NOTE | 2024-03-30 05:00 | PTCARENOTE ---
No acute changes. Labs drawn. NSR. Room air.
[2024-03-30 05:41] LABS: Hematocrit 28.5 % (37.0-47.0); Hemoglobin 9.7 g/dL (12.0-16.0); Mean Corpuscular Hgb 29.1 pg (27.0-31.0); Mean Corpuscular Volume 85.6 fL (81.0-99.0); Mean Platelet Volume 11.1 fL (7.4-10.4); Platelet Count 145 10^3/uL (130-400); Red Blood Cell Count 3.33 10^6/uL (4.20-5.40); Red Cell Dist. Width 13.5 % (11.5-14.5); White Blood Cell Count 16.2 10^3/uL (4.8-10.8)
[2024-03-30 05:42] LABS: Blood Urea Nitrogen 23 mg/dl (7-17); Calcium 8.2 mg/dl (8.4-10.2); Carbon Dioxide 27 mmol/L (22-30); Chloride 104 mmol/L (98-107); Estimated Creatinine Clearance 76 ml/min; Glucose 125 mg/dl (70-99); Magnesium 2.5 mg/dl (1.6-2.3); Potassium 4.4 mmol/L (3.5-5.1); Sodium 139 mmol/L (135-145); eGFR > 60.00
[2024-03-30 05:55] VITALS: BMI 37.2
[2024-03-30] MEDS: TYLENOL 1000 MG PO ×3 (06:02→21:08)
[2024-03-30] MEDS: SYNTHROID 75 MCG PO (06:03)
--- NOTE | 2024-03-30 08:00 | PTCARENOTE ---
Assumed care of patient from plant operator/shift supervisor RN. AAO x 3. SR on monitor. Room air 98%, Using IS to 750. Chest tubes x 2 to - 20 cm suction. No air leak or crepitus noted. Abdomen obese with positive bowel sounds. Denies nausea. Tolerating PO.
Voiding viji urine. General trace anasarca appreciated. Pulses palpable. Plan for day discussed.
[2024-03-30 08:32] VITALS: BP 138/77
[2024-03-30] MEDS: PROTONIX 40 MG PO (08:34)
[2024-03-30] MEDS: SENOKOT-S 1 TABLET PO ×2 (08:34→19:36)
[2024-03-30] MEDS: LOW STRENGTH ASPIRIN 81 MG PO (08:34)
[2024-03-30] MEDS: NEURONTIN 100 MG PO ×3 (08:34→21:08)
[2024-03-30] MEDS: PACERONE 200 MG PO ×3 (08:34→21:08)
[2024-03-30] MEDS: LIPITOR 10 MG PO (08:34)
[2024-03-30] MEDS: LIDOCAINE 4% PATCH 1 PATCH TOPICAL (08:34)
[2024-03-30] MEDS: BACTROBAN 2% OINTMENT 1 APPLIC NASAL ×2 (08:35→19:37)
[2024-03-30] MEDS: NSS IV (08:35)
[2024-03-30] MEDS: TOPROL XL 12.5 MG PO ×2 (08:35→19:36)
--- NOTE | 2024-03-30 10:53 | W.PN.ID1 ---
Date of Service
Date of Service: March 30, 2024
Today's Communication
Continue antibiotics for today.
Assessment / Plan
Aortic insufficiency
- s/p AVR with intraoperative findings of possible healed endocarditis
HTN
Dyslipidemia
Asthma
Recommendations:
Valve specimen has been sent for culture and pathology.
Patient has no history of symptoms consistent with endocarditis
- blood cultures are pending
- path pending
Continue empiric ceftriaxone for now.
Monitor white count and temperature curve.
Further recommendations as additional data is returned.
����������������������������������������������������������
Chief Complaint
-: Other (Possible endocarditis)
Subjective / Review of Systems
Patient seen and examined. Overall feels well. Denies specific complaints. Drains have been removed.
Review of Systems: No Fever and No Chills
Vital Signs / Physical Exam
Vital Signs
Vital Signs
Temp Pulse Resp BP Pulse Ox
98.8 F 64 18 138/77 98
03/30/24 08:00 03/30/24 08:35 03/30/24 08:00 03/30/24 08:35 03/30/24 08:49
Physical Exam
Constitutional: No Acute Distress, Comfortable and Non-toxic
Eyes: No Conjunctival Hemorrhage and Sclera Anicteric
Cardiovascular: S1/S2; Negative S3/S4
Pulmonary: Non Labored
Neurological: Awake and Alert
Psychological: Calm
Objective Data
Lab Data
Lab Results
03/30/24 04:58
03/30/24 04:58
PT 16.7 Sec (11.4-14.6) H 03/28/24 12:52
INR 1.37 03/28/24 12:52
APTT 32.8 Sec (23.4-35.0) 03/28/24 12:52
Estimated Creat Clear 76 ml/min 03/30/24 04:58
Total Bilirubin 0.6 mg/dl (0.2-1.3) 03/20/24 08:58
AST 25 U/L (14-36) 03/20/24 08:58
ALT 23 U/L (0-35) 03/20/24 08:58
Alkaline Phosphatase 93 U/L (38-126) 03/20/24 08:58
Most recent labs reviewed.
Micro Results:
03/28/24 09:41 Anaerobic Culture - Preliminary
Heart Culture pending. Anaerobic cultures are examined after 3
days incubation. Additional information to follow.
03/28/24 09:41 Wound Culture - Preliminary
Chest - Left No growth
Gram Stain - Preliminary
03/28/24 09:50 Fungal Culture - Preliminary
Heart Culture in progress.
Positive cultures are reported as soon as detected.
Final report to follow in four to five weeks.
03/20/24 08:58 MRSA Screen - Final
Nose No Methicillin Resistant Staphylococcus aureus isolated.
Imaging:
01/29/2024 CT TAVR: Bicuspid aortic valve noted with mild to moderate calcifications along with leaflet thickening. No significant calcifications extending into the left ventricular outflow tract. Please see full dictation for additional detail.
--- NOTE | 2024-03-30 10:54 | PTCARENOTE ---
Bilateral chest tubes removed as per MD order. Pt tolerated w/o issue. Resting in bed w/o complaint at present. Will continue to monitor.
[2024-03-30 11:39] VITALS: BP 125/57
--- NOTE | 2024-03-30 11:50 | PTCARENOTE ---
Dozing intermittently in bed. Denies complaint, feels better with out chest tubes. VSS. Assessment otherwise unchanged from prior.
[2024-03-30] MEDS: MUCINEX 1200 MG PO ×2 (13:51→19:36)
[2024-03-30 16:03] VITALS: BP 144/61
[2024-03-30] MEDS: ROCEPHIN 2000 MG IV (16:03)
[2024-03-30] MEDS: STERILE WATER FOR INJECTION 20 ML IV (16:04)
--- NOTE | 2024-03-30 16:12 | PTCARENOTE ---
Ambulated in room, preformed ADLs in bathroom w/o assistance. Some MONTOYA noted, but recovers quickly. Pulse ox 98% room air. Denies pain. VSS. Assessment unchanged from prior.
[2024-03-30 19:40] VITALS: BP 127/57
--- NOTE | 2024-03-30 20:00 | PTCARENOTE ---
Received pt from [facility]. pt resting comfortably in bed, with family at bedside. pt is AAOx4, denies pain. NSR with prolonged QT on monitor, VSS. heart sound audible, radial and DP pulses palpable, trace generalized edema, temp epicardial V-wires
insulated. lung sounds diminished throughout, spo2 100% on RA. + BS x4 quadrants, abdomen soft, round, non tender. pt voiding clear yellow urine. surgical sites maintained. small about of serosanguineous drainage on CT dressing, site cleaned and
dressing changed. right IJ cordis and PIV maintained. CHG wipes provided, new gown and new leads. call bertrand within reach will continue to monitor.
[2024-03-30] MEDS: CALCIUM GLUCONATE 100 IV (21:40)
[2024-03-31] VITALS (11 sets, daily range): BP systolic 114–144; BP diastolic 52–71; PULSE 65; O2SAT 97–98; BMI 37.5
--- NOTE | 2024-03-31 | PTCARENOTE ---
Pt assessment unchanged. NSR on monitor. VSS. pt resting comfortably in bed. call bertrand within reach. will continue to monitor.
--- NOTE | 2024-03-31 04:00 | PTCARENOTE ---
pt assessment unchanged. NSR on monitor. VSS. labs drawn and sent. pt assisted to the bathroom, weighed, and assisted back to bed. call bertrand within reach. will continue to monitor.
[2024-03-31 04:27] LABS: Hematocrit 26.3 % (37.0-47.0); Hemoglobin 9.1 g/dL (12.0-16.0); Mean Corp Hgb Conc. 34.6 g/dL (33.0-37.0); Mean Corpuscular Hgb 30.1 pg (27.0-31.0); Mean Corpuscular Volume 87.1 fL (81.0-99.0); Platelet Count 111 10^3/uL (130-400); Red Blood Cell Count 3.02 10^6/uL (4.20-5.40); Red Cell Dist. Width 13.5 % (11.5-14.5); White Blood Cell Count 12.1 10^3/uL (4.8-10.8)
--- NOTE | 2024-03-31 04:39 | W.PN.CT ---
Today's Communication / Plan
-
Plan:
-No major issues overnight. Hemodynamically and neurologically intact
-BP has been soft postop, improving, tolerating Toprol XL 12.5 mg PO TID
-Gentle diuresis if bp permits, wt up 9lbs from preop. Fluid restriction
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 Afebrile, TM 98.8, wbc 12.1, f/u cultures
-Cont. current meds (ASA, Amiodarone, Lipitor, Synthroid)
-D/C cordis
-Maintain temporary PW (will cut prior to d/c home)
-Encourage use of IS
-OOB into chair/Ambulate
-Likely home tomorrow
Assessment / Plan
-
Assessment:
-S/P Median sternotomy/AVR (#21 Inspiris)/ELAA (35mm AtriClip) by Dr. Bar, 03/28/24, pod#3
-Severe /AI
-Bicuspid AV
-Mild mitral regurgitation
-LVEF 60%, per intraop CANDACE
-Chronic b/l LE edema
-Hypertension
-Hyperlipidemia
-Class 2 obesity (BMI 35.8)
-Hypothyroidism
-Asthma
-S/p knee arthroscopy x 2
-S/p Breast bx
-S/P ORIF of L ankle, 1985
-Acute postop blood loss/Anemia (stable without blood transfusion)
-Acute postop atelectasis
-Acute postop hypovolemia with subsequent hypervolemia
-Intraop a-fib with RVR
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
Discussed patient care with: Cardiology, Nursing, Respiratory Therapy, Pharmacy and Care Team
Subjective
Procedure
S/P Median sternotomy/AVR (#21 Inspiris)/ELAA (35mm AtriClip) by Dr. Bar, 03/28/24
-
Date of Service: March 31, 2024
Pt c/o mild incisional pain, otherwise feels well
Objective Data
-
Lab Results
03/31/24 04:02
PT 16.7 Sec (11.4-14.6) H 03/28/24 12:52
INR 1.37 03/28/24 12:52
APTT 32.8 Sec (23.4-35.0) 03/28/24 12:52
Vital Signs
Vital Signs
Temp Pulse Resp BP Pulse Ox
98.0 F 63 20 144/66 96
03/31/24 04:00 03/31/24 00:07 03/30/24 19:33 03/31/24 00:07 03/31/24 04:00
CT Intake/Output/Weight
03/30/24 03/30/24 03/31/24
06:59 18:59 06:59
Intake Total 130 / 1294.9 1070 / 1550 480 / 1550
Output Total 100 / 345 160 / 360 200 / 360
Balance 30 / 949.9 910 / 1190 280 / 1190
SaO2: 96 (RA)
Physical Exam
-
General: Awake, Oriented and AOx3
Cardiovascular: Regular rate & rhythm, No Murmurs and No Gallop
Respiratory: Decreased Breath Sounds (at bases, otherwise clear)
Sternum: Stable
Incision: Clean, Dry, Intact and Dressing Intact
Extremities: Other (+trace edema)
Data Reviewed
-
Lab Results: Results Reviewed
Medications: Active Meds Reviewed
Chest X-Ray: Report Reviewed and Image Reviewed
ECG: Report Reviewed and Image Reviewed
[2024-03-31 04:50] LABS: Blood Urea Nitrogen 16 mg/dl (7-17); Calcium 8.3 mg/dl (8.4-10.2); Carbon Dioxide 29 mmol/L (22-30); Chloride 103 mmol/L (98-107); Estimated Creatinine Clearance 90 ml/min; Glucose 105 mg/dl (70-99); Magnesium 2.2 mg/dl (1.6-2.3); Potassium 4.4 mmol/L (3.5-5.1); Sodium 136 mmol/L (135-145); eGFR > 60.00
[2024-03-31] MEDS: TYLENOL 1000 MG PO ×3 (06:53→22:46)
[2024-03-31] MEDS: SYNTHROID 75 MCG PO (06:53)
[2024-03-31] MEDS: LIDOCAINE 4% PATCH TOPICAL ×2 (08:11→08:30)
[2024-03-31] MEDS: MAGNESIUM OXIDE 500 MG PO ×2 (08:11→19:34)
[2024-03-31] MEDS: KCL 10 MEQ PO (08:11)
[2024-03-31] MEDS: MILK OF MAGNESIA 30 ML PO (08:11)
[2024-03-31] MEDS: NEURONTIN 100 MG PO ×3 (08:11→22:46)
[2024-03-31] MEDS: PACERONE 200 MG PO ×3 (08:12→22:46)
[2024-03-31] MEDS: SENOKOT-S 1 TABLET PO ×2 (08:12→19:34)
[2024-03-31] MEDS: TOPROL XL 12.5 MG PO ×2 (08:12→19:34)
[2024-03-31] MEDS: MUCINEX 1200 MG PO ×2 (08:12→19:34)
[2024-03-31] MEDS: BACTROBAN 2% OINTMENT 1 APPLIC NASAL ×2 (08:12→19:32)
[2024-03-31] MEDS: LOW STRENGTH ASPIRIN 81 MG PO (08:12)
[2024-03-31] MEDS: LASIX 20 MG IV ×2 (08:12→11:56)
[2024-03-31] MEDS: PROTONIX 40 MG PO (08:12)
[2024-03-31] MEDS: LIPITOR 10 MG PO (08:12)
[2024-03-31] MEDS: NSS IV (08:19)
--- NOTE | 2024-03-31 08:25 | PTCARENOTE ---
Assumed care of patient at 0700. Pt is awake, alert, and oriented. No complaints of pain at this time. Pt remains SR with HR 60's. BP 117/52 MAP 73. Epicardial V wire in place insulated. Pulse oximetry 99% on room air. Pt achieving 1000 with IS,
continued use encouraged. Pt with no BM, PRN Milk of Magnesia administered per order. Pt voiding without issue. Midsternal incision with dressing CDI. Right IJ cordis in place with KVO. Pt currently OOB in chair having breakfast.
--- NOTE | 2024-03-31 10:39 | W.PN.CARDCBS ---
Today's Communication / Plan
-
Stable cardiology status
Impression / Plan
-
Sev
mod AI
s/p bioprosthetic AVR #21 Inspiris valve with 35 mmAtriClip 03/28/24
HTN
asthma
hyperlipidemia
hypothyroidism
Chronic lower extremity edema
Previous cardiovascular testing:
Echocardiogram 12/29/2023: EF 55 to 60%, possible bicuspid aortic valve, severe aortic stenosis 76/38/0 0.8 cm, moderate AI
cardiac cath 01/15/2024: Nonobstructive CAD
Plan:
Stable cardiology status
Remains in sinus rhythm
Discussed with CT surgery PA
Progress Note - Electronics Recycler
Subjective
Date of Service: March 31, 2024
No complaints
Objective
Labs:
03/31/24 04:02
03/31/24 04:02
Labs
Hgb 9.1 g/dL (12.0-16.0) L 03/31/24 04:02
Hct 26.3 % (37.0-47.0) L 03/31/24 04:02
Plt Count 111 10^3/uL (130-400) L D 03/31/24 04:02
PT 16.7 Sec (11.4-14.6) H 03/28/24 12:52
INR 1.37 03/28/24 12:52
APTT 32.8 Sec (23.4-35.0) 03/28/24 12:52
Sodium 136 mmol/L (135-145) 03/31/24 04:02
Potassium 4.4 mmol/L (3.5-5.1) 03/31/24 04:02
BUN 16 mg/dl (7-17) 03/31/24 04:02
Creatinine 0.6 mg/dL (0.6-1.0) 03/31/24 04:02
Glucose 105 mg/dl (70-99) H 03/31/24 04:02
Vital Signs and I&O:
Vital Signs
Temp Pulse Resp BP Pulse Ox
98.0 F 64 18 117/52 99
03/31/24 04:00 03/31/24 07:46 03/31/24 07:46 03/31/24 07:42 03/31/24 08:33
Vital Signs
Temp Pulse Resp BP Pulse Ox
98.0 F 64 18 117/52 99
03/31/24 04:00 03/31/24 07:46 03/31/24 07:46 03/31/24 07:42 03/31/24 08:33
Intake & Output
03/29/24 03/30/24 03/31/24 04/01/24
06:59 06:59 06:59 06:59
Intake Total 615.6 / 615.6 1294.9 / 1294.9 1550 / 1550
Output Total 985 / 985 345 / 345 360 / 360 550 / 550
Balance -369.4 / -369.4 949.9 / 949.9 1190 / 1190 -550 / -550
Physical Exam
Physical Exam
General: Well developed, well nourished in NAD.
Neck: Supple, no JVD, HJR, carotids +2 B/L, no bruits bilaterally.
Heart: Non displaced PMI, RRR, no murmurs, No S3, S4, no rubs.
Lungs: Scattered rhonchi
Sternal dressings noted
Extremities: No clubbing, cyanosis or edema bilaterally.
Neuro: Grossly nonfocal, awake, alert and oriented x3.
--- NOTE | 2024-03-31 11:11 | CM ---
Chart reviewed. Patient is independent of ADLS, lives alone in a 2 STH, 1 RADHA, 0 DME. Patient is going to go to her sisters house when medically stable for discharge. She lives in a [address], 1 RADHA. Her address is [address] [place] [address].
Plan is for the patient to go to her sisters house with CT Transitional RN. CM to follow
--- NOTE | 2024-03-31 11:41 | W.PN.ID1 ---
Date of Service
Date of Service: March 31, 2024
Today's Communication
Continue ceftriaxone for today.
Assessment / Plan
Aortic insufficiency
- s/p AVR with intraoperative findings of possible healed endocarditis
HTN
Dyslipidemia
Asthma
Recommendations:
Valve specimen has been sent for culture and pathology. Cultures negative thus far.
Patient has no history of symptoms consistent with endocarditis
- blood cultures are pending
- path pending
Continue empiric ceftriaxone for now.
Monitor white count and temperature curve.
If cultures negative and path negative, suspect no need for long course of antibiotics.
Further recommendations as additional data is returned.
����������������������������������������������������������
Chief Complaint
-: Other (S/p valve replacement ; possible endocarditis)
Subjective / Review of Systems
Review of Systems: No Fever and No Chills
Vital Signs / Physical Exam
Vital Signs
Vital Signs
Temp Pulse Resp BP Pulse Ox
98.0 F 64 18 117/52 99
03/31/24 04:00 03/31/24 07:46 03/31/24 07:46 03/31/24 07:42 03/31/24 08:33
Physical Exam
Constitutional: No Acute Distress, Comfortable and Non-toxic
Eyes: No Conjunctival Hemorrhage and Sclera Anicteric
Cardiovascular: S1/S2; Negative S3/S4
Pulmonary: Non Labored
Gastrointestinal: Soft and Non Tender
Neurological: Awake and Alert
Psychological: Calm
Objective Data
Lab Data
Lab Results
03/31/24 04:02
03/31/24 04:02
PT 16.7 Sec (11.4-14.6) H 03/28/24 12:52
INR 1.37 03/28/24 12:52
APTT 32.8 Sec (23.4-35.0) 03/28/24 12:52
Estimated Creat Clear 90 ml/min 03/31/24 04:02
Total Bilirubin 0.6 mg/dl (0.2-1.3) 03/20/24 08:58
AST 25 U/L (14-36) 03/20/24 08:58
ALT 23 U/L (0-35) 03/20/24 08:58
Alkaline Phosphatase 93 U/L (38-126) 03/20/24 08:58
Most recent labs reviewed.
Micro Results:
03/28/24 09:41 Anaerobic Culture - Preliminary
Heart Culture pending. Anaerobic cultures are examined after 3
days incubation. Additional information to follow.
03/28/24 09:41 Wound Culture - Preliminary
Chest - Left No growth
Gram Stain - Preliminary
03/28/24 09:50 Fungal Culture - Preliminary
Heart Culture in progress.
Positive cultures are reported as soon as detected.
Final report to follow in four to five weeks.
03/20/24 08:58 MRSA Screen - Final
Nose No Methicillin Resistant Staphylococcus aureus isolated.
Imaging:
01/29/2024 CT TAVR: Bicuspid aortic valve noted with mild to moderate calcifications along with leaflet thickening. No significant calcifications extending into the left ventricular outflow tract. Please see full dictation for additional detail.
[2024-03-31] MEDS: ZOFRAN 4 MG IV (11:56)
--- NOTE | 2024-03-31 12:26 | PTCARENOTE ---
Pt with complaints of nausea. PRN Zofran administered. Pt SR with HR 60's. BP 127/63 MAP 80. Pulse oximetry 98% on room air. Right IJ cordis d/c'd per order. New right hand #[address]
[2024-03-31] MEDS: ROCEPHIN 2000 MG IV (16:00)
[2024-03-31] MEDS: STERILE WATER FOR INJECTION 20 ML IV (16:00)
--- NOTE | 2024-03-31 16:20 | PTCARENOTE ---
pt VSS, agree w/ previous family preservation worker. OOB in chair. no c/o pain. denies n/v. surgical bra in place.
--- NOTE | 2024-03-31 20:00 | PTCARENOTE ---
report received from previous RN, walking rounds done. pt in chair, AAOx4. pt denies any pain at this time. VSS. NSR on monitor, HR 60s. POX 97% on room air. epicardial wires intact and insulated. all surgical sites stable. pt walked halls without
difficulty. now back in bed, resting comfortably. see worklist for full assessment, VS, and interventions.
[2024-03-31] MEDS: ROXICODONE 5 MG PO (22:51)
[2024-03-31] MEDS: FLEXERIL 5 MG PO (22:51)
[2024-04-01] VITALS (8 sets, daily range): BP systolic 111–143; BP diastolic 53–67; PULSE 71; O2SAT 97–98; BMI 36.9
--- NOTE | 2024-04-01 03:30 | PTCARENOTE ---
no changes in assessment, pt VSS. NSR 60s. POX 96-98% on room air. all surgical sites stable. AM labs drawn and sent. weight obtained. pt resting between care.
[2024-04-01 03:50] LABS: Blood Urea Nitrogen 18 mg/dl (7-17); Calcium 8.1 mg/dl (8.4-10.2); Carbon Dioxide 28 mmol/L (22-30); Chloride 100 mmol/L (98-107); Estimated Creatinine Clearance 90 ml/min; Glucose 99 mg/dl (70-99); Magnesium 2.6 mg/dl (1.6-2.3); Potassium 4.2 mmol/L (3.5-5.1); Sodium 136 mmol/L (135-145); eGFR > 60.00
--- NOTE | 2024-04-01 04:30 | W.PN.CT ---
Today's Communication / Plan
-
Plan:
-No major issues overnight. Hemodynamically and neurologically intact
-Soft BP postop has improved, tolerating Toprol XL 12.5 mg PO BID
-Tolerated gentle diuresis, wt up 9lbs from preop. Fluid restriction
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 Afebrile, TM 98.1, wbc 12.1 yesterday, pending this AM, f/u cultures (preliminary wound cx is without growth)
-Cont. current meds (ASA, Amiodarone, Lipitor, Synthroid, Toprol XL)
-F/U 2-view cxr
-Encourage use of IS
-OOB into chair/Ambulate
-Cut temporary PW
-Home today
Assessment / Plan
-
Assessment:
-S/P Median sternotomy/AVR (#21 Inspiris)/ELAA (35mm AtriClip) by Dr. Bar, 03/28/24, pod#4
-Severe /AI
-Bicuspid AV
-Mild mitral regurgitation
-LVEF 60%, per intraop CANDACE
-Chronic b/l LE edema
-Hypertension
-Hyperlipidemia
-Class 2 obesity (BMI 35.8)
-Hypothyroidism
-Asthma
-S/p knee arthroscopy x 2
-S/p Breast bx
-S/P ORIF of L ankle, 1985
-Acute postop blood loss/Anemia (stable without blood transfusion)
-Acute postop atelectasis
-Acute postop hypovolemia with subsequent hypervolemia
-Intraop a-fib with RVR
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
Discussed patient care with: Cardiology, Nursing, Respiratory Therapy, Pharmacy and Care Team
Subjective
Procedure
-S/P Median sternotomy/AVR (#21 Inspiris)/ELAA (35mm AtriClip) by Dr. Bar, 03/28/24
-
Date of Service: April 01, 2024
Pt c/o mild incisional pain, otherwise feels well. Ambulating halls without complication
Objective Data
-
Lab Results
04/01/24 03:25
PT 16.7 Sec (11.4-14.6) H 03/28/24 12:52
INR 1.37 03/28/24 12:52
APTT 32.8 Sec (23.4-35.0) 03/28/24 12:52
Vital Signs
Vital Signs
Temp Pulse Resp BP Pulse Ox
97.9 F 63 18 113/65 96
04/01/24 03:08 04/01/24 03:08 04/01/24 03:08 04/01/24 03:08 04/01/24 03:08
CT Intake/Output/Weight
03/31/24 03/31/24 04/01/24
06:59 18:59 06:59
Intake Total 480 / 1550 120 / 120
Output Total 200 / 360 1450 / 1850 400 / 1850
Balance 280 / 1190 -1450 / -1730 -280 / -1730
SaO2: 96 (RA)
Physical Exam
-
General: Awake, Oriented and AOx3
Cardiovascular: Regular rate & rhythm, No Murmurs, No Rub and No Gallop
Respiratory: Decreased Breath Sounds (at bases, otherwise clear)
Sternum: Stable
Incision: Clean, Dry, Intact and Dressing Intact
Extremities: Other (trace edema)
Data Reviewed
-
Lab Results: Results Reviewed
Medications: Active Meds Reviewed
Chest X-Ray: Report Reviewed and Image Reviewed
ECG: Report Reviewed and Image Reviewed
[2024-04-01] MEDS: KCL 20 MEQ PO (05:48)
[2024-04-01] MEDS: SYNTHROID 75 MCG PO (05:48)
[2024-04-01] MEDS: TYLENOL 1000 MG PO ×3 (05:48→21:07)
[2024-04-01] MEDS: LASIX 20 MG IV (05:48)
[2024-04-01] MEDS: CALCIUM GLUCONATE 100 IV (05:53)
[2024-04-01 06:26] LABS: Hematocrit 26.7 % (37.0-47.0); Hemoglobin 9.3 g/dL (12.0-16.0); Mean Corp Hgb Conc. 34.8 g/dL (33.0-37.0); Mean Corpuscular Hgb 30.5 pg (27.0-31.0); Mean Corpuscular Volume 87.5 fL (81.0-99.0); Platelet Count 135 10^3/uL (130-400); Red Blood Cell Count 3.05 10^6/uL (4.20-5.40); Red Cell Dist. Width 13.4 % (11.5-14.5); White Blood Cell Count 9.8 10^3/uL (4.8-10.8)
[2024-04-01] MEDS: PROTONIX 40 MG PO (08:57)
[2024-04-01] MEDS: LIPITOR 10 MG PO (08:57)
[2024-04-01] MEDS: NEURONTIN 100 MG PO ×3 (08:57→21:07)
[2024-04-01] MEDS: TOPROL XL 12.5 MG PO ×2 (08:57→20:13)
[2024-04-01] MEDS: BACTROBAN 2% OINTMENT 1 APPLIC NASAL (08:57)
[2024-04-01] MEDS: MUCINEX 1200 MG PO ×2 (08:57→20:13)
[2024-04-01] MEDS: PACERONE 200 MG PO ×3 (08:57→21:07)
[2024-04-01] MEDS: LIDOCAINE 4% PATCH TOPICAL (08:57)
[2024-04-01] MEDS: DULCOLAX 10 MG RECTAL (08:57)
[2024-04-01] MEDS: LOW STRENGTH ASPIRIN 81 MG PO (08:58)
[2024-04-01] MEDS: SENOKOT-S 1 TABLET PO (08:58)
[2024-04-01] MEDS: NSS IV (08:58)
--- NOTE | 2024-04-01 09:00 | PTCARENOTE ---
Assumed care of patient at 0700. Pt is awake, alert, and oriented. No complaints of pain. Pt remains SR with HR 70's. BP 111/59 MAP 71. Epicardial V wire insulated. Pulse oximetry 98% on room air. Pt tolerating PO diet. No bowel movement at this
time. PRN Dulcolax administered per order. Pt voiding without issue in bathroom. Midsternal incision with post-op dressing in place. Pt currently OOB in chair.
--- NOTE | 2024-04-01 09:50 | W.PN.CARDCBS ---
Today's Communication / Plan
-
Stable cardiology status except for some fatigue
Encouraged to ambulate
Impression / Plan
-
Sev
mod AI
s/p bioprosthetic AVR #21 Inspiris valve with 35 mmAtriClip 03/28/24
HTN
asthma
hyperlipidemia
hypothyroidism
Chronic lower extremity edema
Previous cardiovascular testing:
Echocardiogram 12/29/2023: EF 55 to 60%, possible bicuspid aortic valve, severe aortic stenosis 76/38/0 0.8 cm, moderate AI
cardiac cath 01/15/2024: Nonobstructive CAD
Plan:
Complains of fatigue which is likely multifactorial
Remains in sinus rhythm
Stable cardiology status
Discussed with CT surgery PA
Progress Note - International Marketing Coordinator
Subjective
Date of Service: April 01, 2024
No complaints
Objective
Labs:
04/01/24 06:05
04/01/24 03:25
Labs
Hgb 9.3 g/dL (12.0-16.0) L 04/01/24 06:05
Hct 26.7 % (37.0-47.0) L 04/01/24 06:05
Plt Count 135 10^3/uL (130-400) D 04/01/24 06:05
PT 16.7 Sec (11.4-14.6) H 03/28/24 12:52
INR 1.37 03/28/24 12:52
APTT 32.8 Sec (23.4-35.0) 03/28/24 12:52
Sodium 136 mmol/L (135-145) 04/01/24 03:25
Potassium 4.2 mmol/L (3.5-5.1) 04/01/24 03:25
BUN 18 mg/dl (7-17) H 04/01/24 03:25
Creatinine 0.6 mg/dL (0.6-1.0) 04/01/24 03:25
Glucose 99 mg/dl (70-99) 04/01/24 03:25
Vital Signs and I&O:
Vital Signs
Temp Pulse Resp BP Pulse Ox
98.2 F 71 16 111/59 98
04/01/24 08:50 04/01/24 09:00 04/01/24 08:50 04/01/24 08:59 04/01/24 08:50
Vital Signs
Temp Pulse Resp BP Pulse Ox
98.2 F 71 16 111/59 98
04/01/24 08:50 04/01/24 09:00 04/01/24 08:50 04/01/24 08:59 04/01/24 08:50
Intake & Output
03/30/24 03/31/24 04/01/24 04/02/24
06:59 06:59 06:59 06:59
Intake Total 1294.9 / 1294.9 1550 / 1550 120 / 120
Output Total 345 / 345 360 / 360 1850 / 1850 400 / 400
Balance 949.9 / 949.9 1190 / 1190 -1730 / -1730 -400 / -400
Physical Exam
Physical Exam
General: Well developed, well nourished in NAD.
Neck: Supple, no JVD, HJR, carotids +2 B/L, no bruits bilaterally.
Heart: Non displaced PMI, RRR, no murmurs, No S3, S4, no rubs.
Lungs: Scattered rhonchi
Sternal dressings noted
Extremities: No clubbing, cyanosis or edema bilaterally.
Neuro: Grossly nonfocal, awake, alert and oriented x3.
--- NOTE | 2024-04-01 12:26 | CM ---
Chart reviewed. Patient is independent of ADLS, lives alone in a 2 STH, 1 RADHA, does have a SPC and RW at home. Patient is going to go to her sisters house once medically stable for discharge. Plan is still to go to patient's sister is in a 1
STH, 1 RADHA. Address is [address] [place] [address]. Plan is for the patient to go to her sisters house with CT Transitional RN. CM to follow
[2024-04-01] MEDS: LASIX 40 MG IV (13:00)
--- NOTE | 2024-04-01 13:10 | PTCARENOTE ---
2 view x-ray completed. Pt ambulated in denson with RN and again with cardiac rehab. Steps completed with cardiac rehab. Pt received 40IV Lasix.
--- NOTE | 2024-04-01 15:41 | W.PN.ID1 ---
Date of Service
Date of Service: April 01, 2024
Today's Communication
DC ceftriaxone.
ID will sign off.
Assessment / Plan
Aortic insufficiency
- s/p AVR with intraoperative findings of possible healed endocarditis
HTN
Dyslipidemia
Asthma
Recommendations:
Valve specimen has been sent for culture and pathology. Cultures negative thus far.
Patient has no history of symptoms consistent with endocarditis
- Valve culture negative
- Valve path NO VEGETATION
DC empiric ceftriaxone.
ID will sign off
����������������������������������������������������������
Chief Complaint
-: Other (S/p valve replacement ; possible endocarditis)
Vital Signs / Physical Exam
Vital Signs
Vital Signs
Temp Pulse Resp BP Pulse Ox
98.2 F 83 18 122/60 95
04/01/24 12:30 04/01/24 12:35 04/01/24 12:30 04/01/24 12:35 04/01/24 12:30
Physical Exam
Constitutional: No Acute Distress, Comfortable and Non-toxic
Eyes: No Conjunctival Hemorrhage and Sclera Anicteric
Cardiovascular: S1/S2; Negative S3/S4
Pulmonary: Non Labored
Gastrointestinal: Soft and Non Tender
Objective Data
Lab Data
Lab Results
04/01/24 06:05
04/01/24 03:25
PT 16.7 Sec (11.4-14.6) H 03/28/24 12:52
INR 1.37 03/28/24 12:52
APTT 32.8 Sec (23.4-35.0) 03/28/24 12:52
Estimated Creat Clear 90 ml/min 04/01/24 03:25
Total Bilirubin 0.6 mg/dl (0.2-1.3) 03/20/24 08:58
AST 25 U/L (14-36) 03/20/24 08:58
ALT 23 U/L (0-35) 03/20/24 08:58
Alkaline Phosphatase 93 U/L (38-126) 03/20/24 08:58
Most recent labs reviewed.
Micro Results:
03/28/24 09:41 Anaerobic Culture - Preliminary
Heart Culture pending. Anaerobic cultures are examined after 3
days incubation. Additional information to follow.
03/28/24 09:50 Fungal Culture - Preliminary
Heart Culture in progress.
Positive cultures are reported as soon as detected.
Final report to follow in four to five weeks.
03/28/24 09:41 Wound Culture - Preliminary
Chest - Left No growth
Gram Stain - Preliminary
03/20/24 08:58 MRSA Screen - Final
Nose No Methicillin Resistant Staphylococcus aureus isolated.
Imaging:
01/29/2024 CT TAVR: Bicuspid aortic valve noted with mild to moderate calcifications along with leaflet thickening. No significant calcifications extending into the left ventricular outflow tract. Please see full dictation for additional detail.
--- NOTE | 2024-04-01 16:15 | PTCARENOTE ---
Pt ambulated with RN, tolerated well. Pt states to be feeling better this afternoon. Remains SR with HR 70's. BP 115/67 MAP 82. Pt ambulated hallway with RN without issue.
[2024-04-01] MEDS: SENOKOT-S PO (20:13)
--- NOTE | 2024-04-01 21:00 | PTCARENOTE ---
Assumed care of pt from dayshift RN. Walking rounds completed. Pt AAOx3. SR on the tele monitor. HR 60-70s. Temporary epicardial V-wire insulated. BP stable. Pt on RA. POX 96%. Lung sounds diminished. Deep breathing and IS encouraged. CT dressing
C/D/I. Abdomen soft/nontender. +BS. Pt voiding yellow urine in the bathroom w/o issue. All surgical sites stable. Sternal antibacterial dressing C/D/I. Surgical bra intact. Pt repositioned into bed. Pt states pain is controlled at this time. Pt is
stand by assist OOB/chair. See worklist for full nursing assessment and interventions. Call bertrand within reach.
[2024-04-02] VITALS (8 sets, daily range): BP systolic 105–125; BP diastolic 52–70; BMI 36.9
--- NOTE | 2024-04-02 00:12 | PTCARENOTE ---
No acute change in assessment. Pt SR on the tele monitor. HR 60s. BP stable. Pt remains on RA. POX 96%. Pt assisted OOB to void in the bathroom then repositioned back into bed. All surgical sites stable. No c/o pain at this time. Call bertrand within
reach.
--- NOTE | 2024-04-02 03:36 | PTCARENOTE ---
No change in assessment. Pt SR on the tele monitor. HR 60-70s. BP 125/52. Pt on RA. POX 98%. Pt assisted OOB to void. Weight obtained. Pt then repositioned back into bed. Labs drawn and sent. Call bertrand within reach.
[2024-04-02 03:38] LABS: Hematocrit 27.1 % (37.0-47.0); Hemoglobin 9.6 g/dL (12.0-16.0); Mean Corp Hgb Conc. 35.4 g/dL (33.0-37.0); Mean Corpuscular Hgb 30.7 pg (27.0-31.0); Mean Corpuscular Volume 86.6 fL (81.0-99.0); Mean Platelet Volume 10.4 fL (7.4-10.4); Platelet Count 166 10^3/uL (130-400); Red Blood Cell Count 3.13 10^6/uL (4.20-5.40); Red Cell Dist. Width 13.5 % (11.5-14.5); White Blood Cell Count 9.8 10^3/uL (4.8-10.8)
[2024-04-02 03:50] LABS: Blood Urea Nitrogen 18 mg/dl (7-17); Calcium 8.5 mg/dl (8.4-10.2); Carbon Dioxide 30 mmol/L (22-30); Chloride 100 mmol/L (98-107); Estimated Creatinine Clearance 77 ml/min; Glucose 101 mg/dl (70-99); Magnesium 2.4 mg/dl (1.6-2.3); Sodium 138 mmol/L (135-145); eGFR > 60.00
--- NOTE | 2024-04-02 05:54 | W.PN.CT ---
Today's Communication / Plan
-
Plan:
-No major issues overnight. Hemodynamically and neurologically intact
-Soft BP postop has improved, tolerating Toprol XL 12.5 mg PO BID
-Tolerated gentle diuresis, wt up 5lbs from preop. Fluid restriction. More diuresis today
-Rocephin d/c'd yesterday per ID, tissue culture and pathology are negative for vegetation
-Cont. current meds (ASA, Amiodarone, Lipitor, Synthroid, Toprol XL)
-Encourage use of IS
-OOB into chair/Ambulate
-Cut temporary PW
-Home today
Assessment / Plan
-
Assessment:
-S/P Median sternotomy/AVR (#21 Inspiris)/ELAA (35mm AtriClip) by Dr. Bar, 03/28/24, pod#5
-Severe /AI
-Bicuspid AV
-Mild mitral regurgitation
-LVEF 60%, per intraop CANDACE
-Chronic b/l LE edema
-Hypertension
-Hyperlipidemia
-Class 2 obesity (BMI 35.8)
-Hypothyroidism
-Asthma
-S/p knee arthroscopy x 2
-S/p Breast bx
-S/P ORIF of L ankle, 1984
-Acute postop blood loss/Anemia (stable without blood transfusion)
-Acute postop atelectasis
-Acute postop hypovolemia with subsequent hypervolemia
-Intraop a-fib with RVR
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
Discussed patient care with: Cardiology, Nursing, Respiratory Therapy, Pharmacy and Care Team
Subjective
Procedure
-S/P Median sternotomy/AVR (#21 Inspiris)/ELAA (35mm AtriClip) by Dr. Bar, 03/28/24
-
Date of Service: April 02, 2024
Pt c/o mild incisional pain, otherwise feels well
Objective Data
-
Lab Results
04/02/24 03:24
04/02/24 03:24
PT 16.7 Sec (11.4-14.6) H 03/28/24 12:52
INR 1.37 03/28/24 12:52
APTT 32.8 Sec (23.4-35.0) 03/28/24 12:52
Vital Signs
Vital Signs
Temp Pulse Resp BP Pulse Ox
98.1 F 73 16 125/52 98
04/02/24 03:25 04/02/24 03:25 04/02/24 03:25 04/02/24 03:25 04/02/24 03:25
CT Intake/Output/Weight
04/01/24 04/01/24 04/02/24
06:59 18:59 06:59
Intake Total 120 / 120
Output Total 400 / 1850 1250 / 1850 600 / 1850
Balance -280 / -1730 -1250 / -1850 -600 / -1850
SaO2: 98 (RA)
Physical Exam
-
General: Awake, Oriented and AOx3
Cardiovascular: Regular rate & rhythm, No Murmurs, No Rub and No Gallop
Respiratory: Decreased Breath Sounds (at bases, otherwise clear )
Sternum: Stable
Incision: Clean, Dry, Intact and Dressing Intact
Extremities: Other (+trace edema)
Data Reviewed
-
Lab Results: Results Reviewed
Medications: Active Meds Reviewed
Chest X-Ray: Report Reviewed and Image Reviewed
ECG: Report Reviewed and Image Reviewed
[2024-04-02] MEDS: TYLENOL 1000 MG PO (06:41)
[2024-04-02] MEDS: LASIX 20 MG IV (06:41)
[2024-04-02] MEDS: SYNTHROID 75 MCG PO (06:41)
[2024-04-02] MEDS: KCL 20 MEQ PO (06:42)
--- NOTE | 2024-04-02 08:00 | PTCARENOTE ---
Assumed care of patient. Walking rounds completed with previous RN. Pt assessed while she was sitting in the chair. Pt alert and oriented x4. Pt states sternal discomfort is tolerable. Denies nausea and shortness of breath. POLANCO with equal strength
throughout, independent in the room. NSR on tele with rate in the 70s. BP stable 105/70. Heart tones audible. Bilateral radial and DP pulses palpable. Trace lower extremity edema noted. POX 95% on RA. Lungs clear throughout. Occasional productive
cough with [place] sputum. IS encouraged-1250ml achieved. Abdomen soft, round, obese, nontender. +BS. +BM yesterday. Pt voiding independently in the bathroom. Sternal incision covered with Aquacel-CDI. Old chest tube sites covered, CDI. Epicardial
v-wire insulated. Right wrist PIV intact. See MAR for medication administration. See worklist for complete nursing assessment. Plan of care reviewed and patient in agreement.
[2024-04-02] MEDS: LIPITOR 10 MG PO (08:10)
[2024-04-02] MEDS: MUCINEX 1200 MG PO (08:10)
[2024-04-02] MEDS: TOPROL XL 12.5 MG PO ×2 (08:10→09:31)
[2024-04-02] MEDS: LOW STRENGTH ASPIRIN 81 MG PO (08:10)
[2024-04-02] MEDS: NEURONTIN 100 MG PO (08:10)
[2024-04-02] MEDS: SENOKOT-S 1 TABLET PO (08:10)
[2024-04-02] MEDS: PACERONE 200 MG PO (08:10)
[2024-04-02] MEDS: FLUSH (NSS) 1 FLUSH IV (08:10)
[2024-04-02] MEDS: PROTONIX 40 MG PO (08:10)
[2024-04-02] MEDS: NSS IV (08:11)
[2024-04-02] MEDS: LIDOCAINE 4% PATCH TOPICAL (08:11)
--- NOTE | 2024-04-02 09:15 | PTCARENOTE ---
Pt assisted to bed. Antibacterial dressing d/c from sternal incision. Incision approximated, no drainage. Epicardial v-wire cut by CT TOMMIE. Pt ambulated 480' in the denson. Pt tolerated.
[2024-04-02] MEDS: ORETIC 12.5 MG PO (09:31)
--- NOTE | 2024-04-02 10:05 | W.PN.UPDATE ---
Update Note
Progress Note Update
temporary epicardial V wires cut at the level of the skin by me + RN for retraction without incident. pt tolerated well.
[2024-04-02] MEDS: LASIX 20 MG PO (10:19)
--- NOTE | 2024-04-02 10:31 | W.DCSUMMARY ---
Discharge Summary
Discharge Data
Date of Admission: 03/28/24
Date of Discharge: 04/02/24
-
Pending Results: Yes
Additional Pending Results:
intraoperative fungal culture
Hospital Course
Primary care physician: Myrna Baldwin
Outpatient feeder associate: Margret
Inpatient consultants: SONIDO
Procedures:
1. 03/28/24 Aortic valve replacement #21 inspiris, exclusion of left atrial appendage #35 clip, sternal plating by Dr. Dm Bar
Primary Diagnosis:
1. severe aortic stenosis and severe aortic regurgitation
2. bicuspid aortic valve
Secondary Diagnoses:
1. hypertension
2. hyperlipidemia
3. class 2 obesity with BMI 35.8
4. hypothyroidism
5. asthma
6. hx knee arthroscopy x2
7. hx breast biopsy
8. hx ORIF left ankle, 1984
9. postoperative acute blood loss anemia, stable without need for transfusion
10. intraoperative concern for healed endocarditis based on gross appearance; pathology negative for vegetation/tissue micro negative for aerobic/anaerobic growth--fungal cx pending
11. chronic lower extremity edema
HPI: Patient is a 68-year-old female with progressive dyspnea on exertion for the last 6 months. Outpatient workup revealed moderate to severe aortic stenosis and moderate to severe aortic insufficiency on echo, with preserved ejection fraction.
Left heart catheterization demonstrated nonobstructive coronary artery disease. She was therefore referred for surgical AVR. After all preoperative workup was completed she was deemed a suitable candidate to undergo the procedure.
Hospital course: She was brought in electively on 03/28/2024 where she underwent an aortic valve replacement with a bioprosthetic #21 Inspira's valve, exclusion of left atrial appendage with a #[address] Dm Bar without any perioperative
complications. Gross appearance of her aortic valve was concerning for a healed endocarditis, therefore tissue culture and pathology was sent, although patient did not report any history consistent with bacterial endocarditis. She was transferred
to CVICU per protocol on Cardene at 2.5. She was extubated later that afternoon without incident. She remained hemodynamically stable overnight on postop day 1 she is off all vasoactive drips she was declined and Urbina discontinued without
incident. She was started on empiric Rocephin until evaluation by infectious disease and culture results from the operating room. She was started on low-dose beta-pedro. On postop day 2 chest tubes were discontinued without incident, she is
feeling well with good sats on room air. On postop day 3 IV diuresis is initiated, Cordis is discontinued. She is progressing well with ambulation. On postop day 4 she continues to make good progress, tissue pathology did not show vegetation and
IntraOp cultures negative for bacterial growth. Fungal culture is pending. Empiric antibiotics were discontinued per infectious disease recommendations. On postop day 5 her vitals remained stable, she remains in sinus rhythm. Temporary
epicardial wires were cut at the level of the skin. She is discharged to home with close follow-up with the transitional care nurse from [facility].
Home medication changes: She is instructed to resume all previous home medications, new prescription provided for Toprol-XL for heart rate and blood pressure control post CABG. She is to start taking baby aspirin daily for her tissue valve.
Prescription for oxycodone given for postsurgical pain as needed.
Discharge Plan
-
Patient Disposition: Home (Routine Discharge)
Discharge Diagnosis/Procedures: /AVR
Condition: Fair
Diet: Low Cholesterol and Low Sodium
Activity: As tolerated
Driving Restrictions: Not until seen by your Dr
Bathing Restrictions: OK to Shower
Other Services: Cardiac Rehab
Specialty Instructions: Weigh Daily- Call MD for wt gain/loss 3 lbs overnight/5 lbs in 1 week
Activity Restrictions/Additional Instructions:
ACTIVITY:
-No strenuous activity: no heavy lifting, pushing, pulling anything over 15 pounds for one month
-continue to use stairs as tolerated
DRIVING RESTRICTIONS:
-No driving for one month or until approved by your surgeon
WOUND CARE:
-Shower daily. Use soap & water.
-No lotions, creams or powders on incision area.
DIET:
-continue a low fat/low cholesterol diet.
-IF you are diabetic, continue carb controlled diet.
CARDIAC REHAB:
-Please make appointment to start in 5-6 weeks with your local hospital program. (See Cardiac Rehabilitation Discharge Booklet).
SPECIALTY INSTRUCTIONS:
-Weigh yourself daily. Call your physician for any weight gain/loss of 3 lbs overnight or 5 lbs in one week.
-REPORT any clicking noise or uneven appearance of your sternum to your surgeon immediately.
-If you smoke, you are instructed to quit. The [place] smoking hotline phone number is [phone]
Referrals:
CT Transitional Care Nurse [Outside]
(
The Cardiothoracic Transitional Care Nurse will call you to set up a visit in 1-2 days.)
Carmen Holder CRNP [Specified Professional Personl] - 05/12/24 1:00 pm
Myrna Baldwin MD [Family Provider] - in four to six weeks (Please make an appointment in four to six weeks. )
Dm Bar MD [Active] - 04/29/24 1:30 pm
Prescriptions:
New
acetaminophen 325 mg Tablet
650 mg PO Q6HPRN PRN (Reason: mild pain,headache,temp >101F ) Qty: 0 0RF
metoprolol succinate 25 mg Tablet Extended Release 24 Hr
25 mg PO DAILY Qty: 30 1RF
aspirin 81 mg Tablet,Chewable
81 mg PO DAILY Qty: 0 0RF
sennosides-docusate sodium 8.6-50 mg Tablet
1 tab PO Q12 PRN (Reason: Constipation) Qty: 0 0RF
oxycodone 5 mg Tablet
2.5 mg PO Q6HPRN PRN (Reason: mild pain) Qty: 10 0RF
Continued
atorvastatin 10 mg Tablet
10 mg PO DAILY
hydrochlorothiazide 12.5 mg Tablet
12.5 mg PO DAILY
levothyroxine 75 mcg Capsule
75 mcg PO DAILY
Discharge Orders:
Discharge Patient (As Directed); Ordered 04/02/24
Ordered By: Jaquelin العراقي
Care Plan Goals
Care Plan Goals:
Problem: Readiness for enhanced knowledge related to diagnosis and treatment plan
Goal: Understand your diagnosis and treatment plan needs, including medications if applicable.
Instructions: Know your diagnosis, underlying causes and treatment plan options, including medications if applicable. Consult with your health care team to learn about your diagnosis and treatment plan, including medications if applicable.
Discharge Date and Time
Discharge Date/Time: 04/02/24 12:18
Print Language: PORTUGUESE
--- NOTE | 2024-04-02 11:20 | PTCARENOTE ---
Discharge order received. PIV d/c. Pt assisted to shower. VSS. Discharge instructions and medications reviewed with patient. All questions answered.
--- NOTE | 2024-04-02 11:57 | W.[place]-PDMP ---
[place]-PDMP
-
Checked the [place]- Prescription Drug Monitoring Program website, no red flags identified; safe to proceed with prescription.
== END 2024-04-02 12:18 | disposition home or self-care (01) | DRG 220 ==
LOC: CVICU 05:01
PROVIDERS: Anesthesiology; Physician Assistant Medical; ADMITTING PHYSICIAN Thoracic Surgery (Cardiothoracic Vascular Surgery); CONSULT PHYSICIAN Internal Medicine Critical Care Medicine; CONSULT PHYSICIAN Internal Medicine Infectious Disease; FAMILY PHYSICIAN Family Medicine
PROC: 02L70CK Occlusion of Left Atrial Appendage with Extraluminal Device, Open Approach (ICD-10-PCS; 2024-03-28)
PROC: 5A1221Z Performance of Cardiac Output, Continuous (ICD-10-PCS; 2024-03-28)
PROC: 02RF08Z Replacement of Aortic Valve with Zooplastic Tissue, Open Approach (ICD-10-PCS; 2024-03-28)
PROC: B24BZZ4 Ultrasonography of Heart with Aorta, Transesophageal (ICD-10-PCS; 2024-03-28)
DX: I35.2 Nonrheumatic aortic (valve) stenosis with insufficiency (principal); D62 Acute posthemorrhagic anemia; J98.11 Atelectasis; I34.0 Nonrheumatic mitral (valve) insufficiency; E03.9 Hypothyroidism, unspecified; I10 Essential (primary) hypertension; J45.909 Unspecified asthma, uncomplicated; I25.10 Atherosclerotic heart disease of native coronary artery without angina pectoris; E66.812 Obesity, class 2; E86.1 Hypovolemia; E87.70 Fluid overload, unspecified; I48.91 Unspecified atrial fibrillation; E78.5 Hyperlipidemia, unspecified; Z68.35 Body mass index [BMI] 35.0-35.9, adult; Z79.899 Other long term (current) drug therapy; Z82.49 Family history of ischemic heart disease and other diseases of the circulatory system
CPT/HCPCS: 88305; 88311; 36415; 71045; 71046; 80048; 80053; 81003; 81015; 82248; 82330; 82565; 82805; 82810; 82947; 82962; 83036; 83735; 84132; 84302; 84520; 85014; 85018; 85025; 85027; 85049; 85610; 85730; 86850; 86900; 86901; 86920; 87070; 87075; 87102; 87205; 93005; 93312; 93320; 93325; 93880; 94002; C1713

== ENCOUNTER → 2024-08-22 07:07 | Outpatient (REF) | payer MEDICARE, OTHER, SELFPAY | LOC: RCS 07:07 | PROVIDERS: ATTENDING PHYSICIAN Internal Medicine Cardiovascular Disease; FAMILY PHYSICIAN Family Medicine | DX: Z95.3 Presence of xenogenic heart valve (principal) | CPT/HCPCS: 93306; Q9950 ==

== ENCOUNTER → 2024-11-20 10:44 | Outpatient (REF) | payer MEDICARE, OTHER, SELFPAY | LOC: WDC 10:44 | PROVIDERS: ATTENDING PHYSICIAN Family Medicine | DX: Z12.31 Encounter for screening mammogram for malignant neoplasm of breast (principal) | CPT/HCPCS: 77063; 77067 ==